=== PATIENT | female | born 1930 | race Caucasian/White ===

== ENCOUNTER 2018-08-01 15:43 | Inpatient (IN) | payer OTHER, MEDICARE ==
--- NOTE | 2018-08-01 16:01 | PDOC ---
History of Present Illness - General Stated Complaint: SHORTNESS OF BREATH Time Seen by Provider: 08/01/18 16:00 - History of Present Illness Initial Comments: 08/01/18 16:40 88 year old woman with a history of asthma, using home oxygen (does not know how many liters) as needed at home, typically in the mornings who prsents with shortness of breath anf nonproductive coughing for 1 day. She is followed by Dr. Ventura. She denies any chest pain, abdominal pain, fevers, recent illness, recent travel. Denies any other medical history aside from intermittent diarrhea but notes that she tends to go to [place] for shortness of breath, and last went last week. never been intubated before Past History - Past Medical History Allergies/Adverse Reactions: Allergies Allergy/AdvReac Type Severity Reaction Status Date / Time albuterol sulfate Allergy Unknown Verified 08/01/18 16:13 [From ProAir HFA] arformoterol tartrate Allergy Unknown Verified 08/01/18 16:13 [From Brovana] losartan Allergy Unknown Verified 08/01/18 16:13 Review of Systems - Review of Systems Able to Perform ROS?: Yes Is the patient limited Filipino proficient: No Constitutional: No: Chills, Diaphoresis, Fever HEENTM: No: Eye Pain, Tinnitus Respiratory: Yes: Cough, Shortness of Breath. No: Orthopnea Cardiac (ROS): No: Chest Pain, Lightheadedness, Palpitations, Syncope ABD/GI: No: Constipated, Diarrhea, Nausea, Vomiting : No: Burning, Dysuria Musculoskeletal: No: Back Pain, Muscle Pain Neurological: No: Headache, Numbness, Seizure, Tingling *Physical Exam - Physical Exam Comments: 08/01/18 16:48 GENERAL: Awake, alert, and fully oriented, 100% on 4L NC, dry cough HEAD: No signs of trauma, normocephalic, atraumatic EYES: EOMI, sclera anicteric, conjunctiva clear ENT: oropharynx clear without exudates. Moist mucosa NECK: Normal ROM, supple LUNGS: No distress, speaks full sentences, coarse breath sounds bilaterally HEART: Regular rate and rhythm, normal S1 and S2, no murmurs, rubs or gallops, peripheral pulses normal and equal bilaterally. ABDOMEN: Soft, nontender, normoactive bowel sounds. No guarding, no rebound. No masses. mild abdominal breathing EXTREMITIES : Normal inspection, Normal range of motion, no edema. No clubbing or cyanosis. NEUROLOGICAL: Cranial nerves II through XII grossly intact. Normal speech, no focal sensorimotor deficits SKIN: Warm, Dry, multiple bruises ED Treatment Course - LABORATORY CBC & Chemistry Diagram: 08/01/18 16:40 08/01/18 16:40 Medical Decision Making - Medical Decision Making 08/01/18 16:43 88 year old woman with a history of asthma, using home oxygen as needed at home , typically in the mornings who prsents with shortness of breath anf nonproductive coughing for 1 day. She is followed by Dr. Ventura. She denies any chest pain, abdominal pain, fevers, recent illness, recent travel. Denies any other medical history aside from intermittent diarrhea but notes that she tends to go to [place] for shortness of breath, and last went last week. ED Course: consider asthma exacerbation vs pna vs viral URI r/o ACS will dose solumedrol and ipratroprium neb as patient has allergy to albuterol cbc, cmp, vbg, bnp, ekg, trop, cxr 08/01/18 16:52 100% on 4L NC, dry cough 08/01/18 17:17 EKG: normal sinus rhythm HR 60, no interval abnormalities, narrow QRS, ST and T wave segments and morphology normal. 08/01/18 17:47 patient reassessed satting 97% on 4L NC increased to 5L will redose breathing treatment dose Mg CXR: unchanged from 2014, patchiness on L and R hilar border, patient rotated on image, deviated airway, appropriate vascular markings, no blunting of costophrenic angle, no cardiomegaly, as read by this television script writer and attending. 08/01/18 18:11 BNP elevated dose lasix 40 Plan to admit 08/01/18 18:13 *DC/Admit/Observation/Transfer Diagnosis at time of Disposition: CHF (congestive heart failure) - Discharge Dispostion Condition at time of disposition: Stable Decision to Admit order: Yes - Referrals - Patient Instructions - Post Discharge Activity
[2018-08-01] MEDS ORDERED: IPRATROPIUM BR 0.02% 0.5 MG/2.5 ML VIAL.NEB. NEB ONE ×5 (16:22→19:59)
[2018-08-01] MEDS ORDERED: methylPREDNISolone NA SUCC 125 MG/2 ML VIAL IVPUSH ONE (16:22)
[2018-08-01] MEDS ORDERED: methylPREDNISolone NA SUCC 125 MG/2 ML VIAL ONE (16:37)
[2018-08-01 16:54] LABS: BASO % 0.3 % (0-2.0); EOS % 0.1 % (0-4.5); HEMATOCRIT 32.3 % (32.4-45.2); HEMOGLOBIN 10.8 GM/dL (10.7-15.3); MCH 30.6 pg (25.7-33.7); MCHC 33.4 g/dl (32.0-36.0); MEAN CELL VOLUME 91.5 fl (80-96); MEAN PLT VOLUME 6.8 fl (7.5-11.1); MONO % 2.9 % (3.8-10.2); NEUT % 93.7 % (42.8-82.8); PLATELET COUNT 224 K/MM3 (134-434); RBC 3.53 M/mm3 (3.60-5.2); RDW 15.3 % (11.6-15.6); VENOUS PH 7.44 (7.31-7.41); VENOUS PO2 57.8 mmHg (30-40); WHITE BLOOD COUNT 12.1 K/mm3 (4.0-10.0)
[2018-08-01 17:18] LABS: INR 0.87 (0.83-1.09); PROTHROMBIN TIME (PATIENT) 10.2 SEC (9.7-13.0)
[2018-08-01 17:21] LABS: ACTIVATED PTT 20.5 SECONDS (25.2-36.5)
[2018-08-01 17:30] LABS: ALBUMIN 2.4 g/dl (3.4-5.0); ALK PHOS 74 U/L (45-117); ANION GAP 6 MMOL/L (8-16); BILIRUBIN,TOTAL 0.4 mg/dL (0.2-1); BLOOD UREA NITROGEN 28 mg/dL (7-18); CALCIUM 8.4 mg/dL (8.5-10.1); CHLORIDE 94 mmol/L (98-107); CO2 30 mmol/L (21-32); CREATININE 0.7 mg/dL (0.55-1.3); GLUCOSE,RANDOM 178 mg/dL (74-106); N-TERMINAL BNP 1783.9 pg/ml (5-450); POTASSIUM 5.2 mmol/L (3.5-5.1); SGOT/AST 28 U/L (15-37); SGPT/ALT 42 U/L (13-61); SODIUM 130 mmol/L (136-145)
[2018-08-01] MEDS ORDERED: MAGNESIUM SULF 50% (8.12 MEQ/2 ML-1 GM VIAL) IVPB ONE (17:47)
[2018-08-01] MEDS ORDERED: FUROSEMIDE 40 MG/4 ML INJECTABLE VIAL IVPUSH ONE (18:11)
[2018-08-01] MEDS ORDERED: MAGNESIUM 1GM/D5W - 2 GM/200 ML IVPB IVPB ONE (18:13)
[2018-08-01] MEDS ORDERED: FUROSEMIDE 40 MG/4 ML INJECTABLE VIAL ONE (18:45)
--- NOTE | 2018-08-01 18:47 | PDOC ---
Attending Attestation - HPI HPI: 08/01/18 19:33 The patient is a 88 year old female, with a significant past medical history of asthma (on @home O2), who presents to the emergency department with, shortness of breath and blt LE pitting edema. She denies recent fevers, chills, headache or dizziness. She denies recent nausea, vomit, diarrhea or constipation. She denies recent dysuria, frequency, urgency or hematuria. She denies recent chest pain. - Physicial Exam PE: 08/01/18 19:33 GENERAL: Well-appearing, well-nourished. No apparent distress. HEENT: Normocephalic, atraumatic. PERRL, EOM intact. CARDIOVASCULAR: Normal S1, S2. Regular rate and rhythm. PULMONARY: On 4L O2. Scattered rhonchi and wheezes. Tachypneic. Increased work of breathing. ABDOMEN: Soft, non-distended, non-tender. EXTREMITIES: 3+ blt pitting edema. Normal ROM in all four extremities. SKIN: Warm, dry. No rash NEUROLOGICAL: No focal neurological deficits. <Maverick Dale - Last Filed: 08/01/18 19:49> - Resident Resident Name: Tiffanie Moser - ED Attending Attestation I have performed the following: I have examined & evaluated the patient, The case was reviewed & discussed with the resident, I agree w/resident's findings & plan, Exceptions are as noted - Medical Decision Making 08/01/18 20:11 Diff includes copd exacerbation,chf,ACS and pt will receive resp treatmetns, Lasix,trop and admission <Kesha Woody - Last Filed: 08/01/18 20:12> Attestations - Attestations 08/01/18 19:34 Documentation prepared by Maverick Dale, acting as electromedical equipment technician for Kesha Woody MD. <Maverick Dale - Last Filed: 08/01/18 19:49>
[2018-08-01 19:25] LABS: ANISOCYTOSIS 0; MACROCYTOSIS 0; PLATELET ESTIMATE NORMAL
--- NOTE | 2018-08-01 19:54 | HP ---
CHIEF COMPLAINT:shortness of breath PCP: dr Ventura HISTORY OF PRESENT ILLNESS: 88 year old woman with a history of asthma, using home oxygen (does not know how many liters) as needed at home, typically in the mornings who prsents with shortness of breath anf nonproductive coughing for 1 day. She is followed by Dr. Ventura.She has multiple admission at [facility] for acute astham and she came here first time for admission. She denies any chest pain, abdominal pain, fevers , recent illness, recent travel. Denies any other medical history aside from intermittent diarrhea NO h/o intubation before she cant recall her home meds and she goes to [facility] ER course was notable for: (1)sob (2)h/o asthma (3)multiple admissions to hospital Recent Travel:non PAST MEDICAL HISTORY:asthma and arthritis PAST SURGICAL HISTORY:she doesn't remember Social History: Smoking:none Alcohol:none Drugs: none Family History:not significant and she lives with her brother and son Allergies albuterol sulfate [From ProAir HFA] Allergy (Unknown, Verified 08/01/18 16:13) arformoterol tartrate [From Brovana] Allergy (Unknown, Verified 08/01/18 16:13) losartan Allergy (Unknown, Verified 08/01/18 16:13) HOME MEDICATIONS: REVIEW OF SYSTEMS CONSTITUTIONAL: Absent: chills, diaphoresis, generalized weakness, malaise, loss of appetite, weight change HEENT: Absent: rhinorrhea, nasal congestion, throat pain, throat swelling, difficulty swallowing, mouth swelling, ear pain, eye pain, visual changes CARDIOVASCULAR: Absent: chest pain, syncope, palpitations, irregular heart rate, lightheadedness , peripheral edema RESPIRATORY: Absent: dyspnea with exertion, orthopnea, wheezing, stridor, hemoptysis but positive for cough, shortness of breath, GASTROINTESTINAL: Absent: abdominal pain, abdominal distension, nausea, vomiting, diarrhea, constipation, melena, hematochezia GENITOURINARY: Absent: dysuria, frequency, urgency, hesitancy, hematuria, flank pain, genital pain MUSCULOSKELETAL: Absent: myalgia, arthralgia, joint swelling, back pain, neck pain SKIN: Absent: rash, itching, pallor HEMATOLOGIC/IMMUNOLOGIC: Absent: easy bleeding, easy bruising, lymphadenopathy, frequent infections ENDOCRINE: Absent: unexplained weight gain, unexplained weight loss, heat intolerance, cold intolerance NEUROLOGIC: Absent: headache, focal weakness or paresthesias, dizziness, unsteady gait, seizure, mental status changes, bladder or bowel incontinence PHYSICAL EXAMINATION Vital Signs - 24 hr 08/01/18 16:08 Temperature 99.5 F Pulse Rate 63 Respiratory 20 Rate Blood Pressure 110/60 O2 Sat by Pulse 100 Oximetry (%) GENERAL: Awake, alert, and in mild wheezing HEAD: Normal with no signs of trauma. EYES: Pupils equal, round and reactive to light, extraocular movements intact, sclera anicteric, conjunctiva clear. No lid lag. EARS, NOSE, THROAT: Ears normal, nares patent, oropharynx clear without exudates. Moist mucous membranes. NECK: Normal range of motion, supple without lymphadenopathy, JVD, or masses. LUNGS: Bilateral wheezing and moderate air entry HEART: Regular rate and rhythm, normal S1 and S2 without murmur, rub or gallop. ABDOMEN: Soft, nontender, not distended, normoactive bowel sounds, no guarding, no rebound, no masses. No hepatomegaly or splenomegaly. MUSCULOSKELETAL: defuse oa UPPER EXTREMITIES: 2+ pulses, warm, well-perfused. No cyanosis. No clubbing. No peripheral edema. LOWER EXTREMITIES: 2+ pulses, warm, well-perfused. No calf tenderness. No peripheral edema. NEUROLOGICAL: Cranial nerves II-XII intact. Normal speech. Normal gait. SKIN: Warm, dry, normal turgor, no rashes or lesions noted, normal capillary refill. Laboratory Results - last 24 hr 08/01/18 08/01/18 08/01/18 16:40 16:40 16:40 WBC 12.1 H RBC 3.53 L Hgb 10.8 Hct 32.3 L MCV 91.5 MCH 30.6 MCHC 33.4 RDW 15.3 Plt Count 224 MPV 6.8 L Absolute Neuts (auto) 11.4 H Neutrophils % 93.7 H Neutrophils % (Manual) 86.2 H Band Neutrophils % 2.1 Lymphocytes % 3.0 L Lymphocytes % (Manual) 2.1 L Monocytes % 2.9 L Monocytes % (Manual) 2 L Eosinophils % 0.1 Eosinophils % (Manual) 0.0 Basophils % 0.3 Basophils % (Manual) 0.0 Myelocytes % (Man) 1 Promyelocytes % (Man) 1 Blast Cells % (Manual) 0 Nucleated RBC % 0 Metamyelocytes 3 H Hypochromia 0 Platelet Estimate Normal Polychromasia 0 Poikilocytosis 0 Anisocytosis 0 Microcytosis 0 Macrocytosis 0 [place] Cells 1+ Fragmented RBCs 1+ PT with INR 10.20 INR 0.87 PTT (Actin FS) 20.5 L VBG pH POC VBG pCO2 POC VBG pO2 VBG HCO3 VBG O2 Sat (Hetal) VBG Base Excess Sodium 130 L Potassium 5.2 H Chloride 94 L Carbon Dioxide 30 Anion Gap 6 L BUN 28 H Creatinine 0.7 Creat Clearance w eGFR 79.15 Random Glucose 178 H Calcium 8.4 L Total Bilirubin 0.4 AST 28 ALT 42 Alkaline Phosphatase 74 Troponin I < 0.02 B-Natriuretic Peptide 1783.9 H Total Protein 5.0 L Albumin 2.4 L Stool Occult Blood 08/01/18 08/01/18 16:40 17:31 WBC RBC Hgb Hct MCV MCH MCHC RDW Plt Count MPV Absolute Neuts (auto) Neutrophils % Neutrophils % (Manual) Band Neutrophils % Lymphocytes % Lymphocytes % (Manual) Monocytes % Monocytes % (Manual) Eosinophils % Eosinophils % (Manual) Basophils % Basophils % (Manual) Myelocytes % (Man) Promyelocytes % (Man) Blast Cells % (Manual) Nucleated RBC % Metamyelocytes Hypochromia Platelet Estimate Polychromasia Poikilocytosis Anisocytosis Microcytosis Macrocytosis Michael Cells Fragmented RBCs PT with INR INR PTT (Actin FS) VBG pH 7.44 H POC VBG pCO2 44.0 POC VBG pO2 57.8 H VBG HCO3 29.1 H VBG O2 Sat (Hetal) 89.6 H VBG Base Excess 4.8 H Sodium Potassium Chloride Carbon Dioxide Anion Gap BUN Creatinine Creat Clearance w eGFR Random Glucose Calcium Total Bilirubin AST ALT Alkaline Phosphatase Troponin I B-Natriuretic Peptide Total Protein Albumin Stool Occult Blood Negative ASSESSMENT/PLAN: 88 year old woman with a history of asthma, using home oxygen as needed at home , typically in the mornings who presents with shortness of breath anf nonproductive coughing for 1 day. Will start her on atrovent nebulizer ,oxygen therapy,solumedrol and iv levaquin activity as tolerated dvt prophylaxis with lovenox will get her list of her medications from her pharmacy tomorrow by construction person hospitalist. pulmonary consult and dr Ventura is aware. repeat labs am Visit type - Emergency Visit Emergency Visit: Yes ED Registration Date: 08/01/18 Care time: The patient presented to the Emergency Department on the above date and was hospitalized for further evaluation of their emergent condition. - New Patient This patient is new to me today: Yes Date on this admission: 08/01/18 - Critical Care Critical Care patient: No
[2018-08-01] MEDS ORDERED: methylPREDNISolone NA SUCC 40 MG/1 ML VIAL ONE (19:59)
[2018-08-01] MEDS: IPRATROPIUM BR 0.02% 0.5 MG/2.5 ML VIAL.NEB. NEB SCH (20:42)
[2018-08-01] MEDS: methylPREDNISolone NA SUCC 40 MG/1 ML VIAL IVPUSH SCH (20:42)
[2018-08-01 23:22] LABS: EPI CELLS 1.7 /HPF (0-5); PH,URINE 6.5 (5.0-8.0); URINE APPEARANCE CLOUDY; URINE BACTERIA 5372.5 /hpf (NEGATIVE); URINE BILIRUBIN NEGATIVE (NEGATIVE); URINE CASTS 1 /hpf (0-8); URINE COLOR YELLOW; URINE GLUCOSE (UA) NEGATIVE (NEGATIVE); URINE KETONE NEGATIVE (NEGATIVE); URINE LEUK ESTERASE 1+ (NEGATIVE); URINE NITRITE NEGATIVE (NEGATIVE); URINE PROTEIN NEGATIVE (NEGATIVE); URINE RBC 3 /hpf (0-4); URINE UROBILINOGEN 0.2 mg/dL (0.2-1.0); URINE WBC 2 /hpf (0-5)
[2018-08-02] MEDS ORDERED: methylPREDNISolone NA SUCC 40 MG/1 ML VIAL ONE (03:59)
[2018-08-02] MEDS: methylPREDNISolone NA SUCC 40 MG/1 ML VIAL IVPUSH SCH ×4 (04:06→20:09)
[2018-08-02 04:49] VITALS: BMI 22.1
[2018-08-02] MEDS: IPRATROPIUM BR 0.02% 0.5 MG/2.5 ML VIAL.NEB. NEB SCH ×4 (07:35→22:04)
[2018-08-02 08:05] LABS: ANION GAP 4 MMOL/L (8-16); BLOOD UREA NITROGEN 30 mg/dL (7-18); CALCIUM 8.5 mg/dL (8.5-10.1); CHLORIDE 91 mmol/L (98-107); CO2 35 mmol/L (21-32); CREATININE 0.8 mg/dL (0.55-1.3); GLUCOSE,RANDOM 181 mg/dL (74-106); POTASSIUM 4.8 mmol/L (3.5-5.1); SODIUM 130 mmol/L (136-145)
[2018-08-02] MEDS ORDERED: PT OWN MED DRAWER 7, Y5N ONE (09:04)
[2018-08-02] MEDS: ENOXAPARIN NA (PORCINE) 30 MG/0.3 ML DISP.SYRIN SQ SCH (09:16)
[2018-08-02 09:21] LABS: BASO % 0.1 % (0-2.0); HEMATOCRIT 31.5 % (32.4-45.2); HEMOGLOBIN 10.8 GM/dL (10.7-15.3); MCH 31.3 pg (25.7-33.7); MCHC 34.3 g/dl (32.0-36.0); MEAN CELL VOLUME 91.3 fl (80-96); MEAN PLT VOLUME 7.3 fl (7.5-11.1); MONO % 2.2 % (3.8-10.2); NEUT % 93.7 % (42.8-82.8); PLATELET COUNT 219 K/MM3 (134-434); RBC 3.46 M/mm3 (3.60-5.2); RDW 14.8 % (11.6-15.6); WHITE BLOOD COUNT 11.2 K/mm3 (4.0-10.0)
[2018-08-02] MEDS ORDERED: FUROSEMIDE 40 MG/4 ML INJECTABLE VIAL IVPUSH ONE (10:00)
[2018-08-02] MEDS ORDERED: FLU VACCINE QUAD 60 MCG/0.5 ML (MDV 18-19) IM ONE (10:00)
--- NOTE | 2018-08-02 10:46 | CON.PULM ---
Consult Consult Specialty:: PULMONARY Referred by:: Dr Mercedes Reason for Consultation:: shortness of breath - History of Present Illness Chief Complaint: shortness of breath History of Present Illness: 88yo female with h/o asthma/COPD, chronic hypoxic respiratory failure on home O2 who was admitted with worsening shortness of breath. No chest pain or palpitations. No fevers, chills or sweats. Denies cough but with chest tightness and wheezing. Does not know her home meds, known from prior admissions with questionable compliance with her inhalers. No sick contacts or recent travel. She is a nonsmoker. - History Source History Provided By: Patient, Medical Record Limitations to Obtaining History: No Limitations - Past Medical History Pulmonary: Yes: Asthma, COPD, O2 Dependent ...: No - Alcohol/Substance Use Hx Alcohol Use: No - Smoking History Smoking history: Never smoked Have you smoked in the past 12 months: No Home Medications - Allergies Allergies/Adverse Reactions: Allergies Allergy/AdvReac Type Severity Reaction Status Date / Time albuterol sulfate Allergy Unknown Verified 08/01/18 16:13 [From ProAir HFA] arformoterol tartrate Allergy Unknown Verified 08/01/18 16:13 [From Brovana] losartan Allergy Unknown Verified 08/01/18 16:13 - Home Medications Home Medications: Ambulatory Orders Unobtainable 08/01/18 Review of Systems - Review of Systems Constitutional: denies: Chills, Fever Eyes: denies: Recent Change in Vision HENT: denies: Throat Pain Cardiovascular: reports: Shortness of Breath. denies: Chest Pain, Edema Respiratory: reports: Wheezing. denies: Cough, Hemoptysis Gastrointestinal: denies: Abdominal Pain, Nausea, Vomiting Genitourinary: denies: Dysuria, Hematuria Neurological: denies: Dizziness, Headache Endocrine: denies: Unexplained Weight Loss Physical Exam Vital Sings: Vital Signs Temperature 98.5 F 08/02/18 03:49 Pulse Rate 64 08/02/18 03:49 Respiratory Rate 19 08/02/18 03:49 Blood Pressure 121/78 08/02/18 03:49 O2 Sat by Pulse Oximetry (%) 98 08/02/18 03:49 Constitutional: Yes: Anxious, Mild Distress Eyes: Yes: Conjunctiva Clear, EOM Intact HENT: Yes: Atraumatic, Normocephalic Neck: Yes: Supple, Trachea Midline Cardiovascular: Yes: Regular Rate and Rhythm Respiratory: Yes: Rhonchi, Wheezes ...Clubbing: No Gastrointestinal: Yes: Normal Bowel Sounds, Soft. No: Tenderness Edema: No Neurological: Yes: Alert, Oriented Labs: CBC, BMP 08/02/18 06:45 08/02/18 06:45 Imaging - Results Chest X-ray: Report Reviewed, Image Reviewed (no infiltrates) Assessment/Plan Acute COPD Exacerbation Chronic Hypoxic Respiratory Failure Hyponatremia r/o CHF - agree with IV medrol - inhaled bronchodilators standing and PRN - O2 to keep SpO2 >90% - empiric antibiotics - echocardiogram - DVT prophylaxis Thank you for this consult Dexter Guzman MD
[2018-08-02 11:06] LABS: ANISOCYTOSIS 0; MACROCYTOSIS 1+; PLATELET ESTIMATE NORMAL
--- NOTE | 2018-08-02 11:35 | PN ---
Physical Exam: SUBJECTIVE: Patient seen and examined at bedside this morning. She currently admits difficulty breathing that has been longstanding. She is uncertain regarding her home medications and admits she is not compliant with all of her prescribed medications. She denies subjective fevers, chills, chest pain, palpitations, abdominal pain, nausea, vomiting. OBJECTIVE: Vital Signs Period Temp Pulse Resp BP Sys/Puga Pulse Ox Last 24 Hr 98.2 F-99.5 F 63-76 19-22 110-128/60-78 96-100 GENERAL: The patient is awake, alert, and oriented, in no acute distress. HEAD: Normocephalic, atraumatic. EYES: PERRL, extraocular movements intact, sclera anicteric, conjunctiva clear. ENT: Oropharynx clear without exudates, dry mucous membranes. NECK: Trachea midline, supple without lymphadenopathy. LUNGS: Poor air entry bilaterally. Wheezing, coarse rhonchi auscultated bilaterally. HEART: Regular rate and rhythm, S1, S2 auscultated without murmur, rubs, gallops. ABDOMEN: Soft, nondistended, nontender to light and deep palpation X4 quadrants. No guarding, no rebound tenderness. Normoactive bowel sounds x4 quadrants. EXTREMITIES: 2+ radial, dorsalis pedis pulses bilaterally. Warm, well-perfused. 1+ bilateral lower extremity edema. NEUROLOGICAL: Cranial nerves II through XII grossly intact. PSYCH: Normal mood, normal affect upon my encounter. SKIN: Warm, dry. Laboratory Results - last 24 hr 08/01/18 08/01/18 08/01/18 16:40 16:40 16:40 WBC 12.1 H RBC 3.53 L Hgb 10.8 Hct 32.3 L MCV 91.5 MCH 30.6 MCHC 33.4 RDW 15.3 Plt Count 224 MPV 6.8 L Absolute Neuts (auto) 11.4 H Neutrophils % 93.7 H Neutrophils % (Manual) 86.2 H Band Neutrophils % 2.1 Lymphocytes % 3.0 L Lymphocytes % (Manual) 2.1 L Monocytes % 2.9 L Monocytes % (Manual) 2 L Eosinophils % 0.1 Eosinophils % (Manual) 0.0 Basophils % 0.3 Basophils % (Manual) 0.0 Myelocytes % (Man) 1 Promyelocytes % (Man) 1 Blast Cells % (Manual) 0 Nucleated RBC % 0 Metamyelocytes 3 H Hypochromia 0 Platelet Estimate Normal Polychromasia 0 Poikilocytosis 0 Anisocytosis 0 Microcytosis 0 Macrocytosis 0 Michael Cells 1+ Fragmented RBCs 1+ Schistocytes PT with INR 10.20 INR 0.87 PTT (Actin FS) 20.5 L VBG pH POC VBG pCO2 POC VBG pO2 VBG HCO3 VBG O2 Sat (Hetal) VBG Base Excess Sodium 130 L Potassium 5.2 H Chloride 94 L Carbon Dioxide 30 Anion Gap 6 L BUN 28 H Creatinine 0.7 Creat Clearance w eGFR 79.15 Random Glucose 178 H Calcium 8.4 L Total Bilirubin 0.4 AST 28 ALT 42 Alkaline Phosphatase 74 Troponin I < 0.02 B-Natriuretic Peptide 1783.9 H Total Protein 5.0 L Albumin 2.4 L Urine Color Urine Appearance Urine pH Ur Specific [place] Urine Protein Urine Glucose (UA) Urine Ketones Urine Blood Urine Nitrite Urine Bilirubin Urine Urobilinogen Ur Leukocyte Esterase Urine WBC (Auto) Urine RBC (Auto) Urine Casts (Auto) U Epithel Cells (Auto) Urine Bacteria (Auto) Stool Occult Blood 08/01/18 08/01/18 08/01/18 16:40 17:31 23:14 WBC RBC Hgb Hct MCV MCH MCHC RDW Plt Count MPV Absolute Neuts (auto) Neutrophils % Neutrophils % (Manual) Band Neutrophils % Lymphocytes % Lymphocytes % (Manual) Monocytes % Monocytes % (Manual) Eosinophils % Eosinophils % (Manual) Basophils % Basophils % (Manual) Myelocytes % (Man) Promyelocytes % (Man) Blast Cells % (Manual) Nucleated RBC % Metamyelocytes Hypochromia Platelet Estimate Polychromasia Poikilocytosis Anisocytosis Microcytosis Macrocytosis Michael Cells Fragmented RBCs Schistocytes PT with INR INR PTT (Actin FS) VBG pH 7.44 H POC VBG pCO2 44.0 POC VBG pO2 57.8 H VBG HCO3 29.1 H VBG O2 Sat (Hetal) 89.6 H VBG Base Excess 4.8 H Sodium Potassium Chloride Carbon Dioxide Anion Gap BUN Creatinine Creat Clearance w eGFR Random Glucose Calcium Total Bilirubin AST ALT Alkaline Phosphatase Troponin I B-Natriuretic Peptide Total Protein Albumin Urine Color Yellow Urine Appearance Cloudy Urine pH 6.5 Ur Specific [place] 1.006 L Urine Protein Negative Urine Glucose (UA) Negative Urine Ketones Negative Urine Blood 1+ H Urine Nitrite Negative Urine Bilirubin Negative Urine Urobilinogen 0.2 Ur Leukocyte Esterase 1+ H Urine WBC (Auto) 2 Urine RBC (Auto) 3 Urine Casts (Auto) 1 U Epithel Cells (Auto) 1.7 Urine Bacteria (Auto) 5372.5 Stool Occult Blood Negative 08/02/18 08/02/18 06:45 06:45 WBC 11.2 H RBC 3.46 L Hgb 10.8 Hct 31.5 L MCV 91.3 MCH 31.3 MCHC 34.3 RDW 14.8 Plt Count 219 MPV 7.3 L Absolute Neuts (auto) 10.5 H Neutrophils % 93.7 H Neutrophils % (Manual) 83.8 H Band Neutrophils % 4.0 Lymphocytes % 4.0 L D Lymphocytes % (Manual) 4.1 L D Monocytes % 2.2 L Monocytes % (Manual) 0 L D Eosinophils % 0.0 D Eosinophils % (Manual) 0.0 Basophils % 0.1 Basophils % (Manual) 0.0 Myelocytes % (Man) 5 H D Promyelocytes % (Man) 0 D Blast Cells % (Manual) 0 Nucleated RBC % 0 Metamyelocytes 2 D Hypochromia 0 Platelet Estimate Normal Polychromasia 0 Poikilocytosis 1+ Anisocytosis 0 Microcytosis 0 Macrocytosis 1+ Michael Cells Fragmented RBCs Schistocytes 1+ PT with INR INR PTT (Actin FS) VBG pH POC VBG pCO2 POC VBG pO2 VBG HCO3 VBG O2 Sat (Hetal) VBG Base Excess Sodium 130 L Potassium 4.8 Chloride 91 L Carbon Dioxide 35 H Anion Gap 4 L BUN 30 H Creatinine 0.8 Creat Clearance w eGFR 67.85 Random Glucose 181 H Calcium 8.5 Total Bilirubin AST ALT Alkaline Phosphatase Troponin I B-Natriuretic Peptide Total Protein Albumin Urine Color Urine Appearance Urine pH Ur Specific [place] Urine Protein Urine Glucose (UA) Urine Ketones Urine Blood Urine Nitrite Urine Bilirubin Urine Urobilinogen Ur Leukocyte Esterase Urine WBC (Auto) Urine RBC (Auto) Urine Casts (Auto) U Epithel Cells (Auto) Urine Bacteria (Auto) Stool Occult Blood Active Medications Generic Name Dose Route Start Last Admin Trade Name Freq PRN Reason Stop Dose Admin Enoxaparin Sodium 30 mg 08/02/18 10:00 08/02/18 09:16 Lovenox - SQ 30 mg DAILY AMAURI Administration Levofloxacin 250 mg in 50 mls @ 50 mls/hr 08/01/18 20:00 08/02/18 09:15 Levaquin 250 Mg Premixed Ivpb - IVPB 50 mls/hr DAILY AMAURI Administration Protocol Ipratropium Sontag 1 amp 08/01/18 20:00 08/02/18 07:35 Atrovent 0.02% Nebulizer - NEB 1 amp RQID AMAURI Administration Levalbuterol HCl 0.63 mg 08/02/18 14:00 Xopenex IH RTID AMAURI Methylprednisolone Sodium Succinate 40 mg 08/01/18 21:00 08/02/18 09:14 Solu-Medrol - IVPUSH 40 mg Q6H-IV AMAURI Administration ASSESSMENT/PLAN: Patient is an 88 year old female with history of asthma, with numerous admissions to [facility] for asthma exacerbation, on home oxygen, no prior history of intubations, presents with complaint of shortness of breath. Acute hypoxic respiratory failure -Likely secondary to asthma exacerbation, secondary to poor medication compliance -Methylprednisone 40mg IV Q6H -Levalbuterol 0.63mg IH TID -Ipratropium 1amp QID -Pulmonology consult (Dr. Guzman) appreciated. -Follow blood cultures Urinary tract infection -Levofloxacin 250mg IV daily (day #2) -Follow urine cultures Hypertension -Cardizem 120mg PO daily -Atenolol 25mg PO HS Hyperlipidemia -Atorvastatin 10mg PO HS Hyponatremia -Likely secondary to fluid overload -Lasix 40mg IV one time dose -Follow CMP FEN -No IV fluids -Hyponatremia. Follow CMP -regular diet Prophylaxis Lovenox 30mg subq daily Disposition -Continue care in medical-surgical floor Visit type - Emergency Visit Emergency Visit: Yes ED Registration Date: 08/01/18 Care time: The patient presented to the Emergency Department on the above date and was hospitalized for further evaluation of their emergent condition. - New Patient This patient is new to me today: Yes Date on this admission: 08/02/18 - Critical Care Critical Care patient: No - Discharge Referral Referred to [facility] No
--- NOTE | 2018-08-02 12:27 | PN ---
Teaching Attending Note Name of Resident: Gopal Phillips ATTENDING PHYSICIAN STATEMENT I saw and evaluated the patient. I reviewed the resident's note and discussed the case with the resident. I agree with the resident's findings and plan as documented. poor historian SUBJECTIVE:c/o difficulty breathing. states she cant lay down due to the breathing. unclear what her medications are, states there are some she is supposed to be taking but didnt get them from the pharmacy because she thought they were duplicates. was at [facility] recently and was d/c from ER. came here because they "dont do anything". denies CP, fever, chills, cough, N/V/C/D OBJECTIVE: Last Vital Signs Temp Pulse Resp BP Pulse Ox 98.5 F 64 19 121/78 98 08/02/18 03:49 08/02/18 03:49 08/02/18 03:49 08/02/18 03:49 08/02/18 03:49 General mild distress with tachypnea CV S1 S2 RRR no murmur/rub/gallop Lungs L base crackles. poor inspiratory effort Abdomen soft NT/ND Extremities 1+ pitting edema B/L ASSESSMENT AND PLAN: 88yo F wtih PMH athma on home O2 presnted to the ER with dyspnea and non productive cough for 1 day 1. ACute on CHronic hypoxic respiratory failure-due to asthma exacerbation and possible congestive heart failure. tachypnic, saturating 95% on 2L NC. is able to speak in clear sentences. is given stat dose of medrol and breathing treatment is called for with improvement in symptoms. on medrol 40mg Q6H, levaquin day 2. will give dose of lasix 40mg IVP and check echo. will need to obtain medication list and determine what other medical problems pt has as it seems she is on a long list of medications but nothing noted here. will also reach out to son to get more medical information and confirm med list at home. 2. UTI- on levaquin. f/u Cx 3. Hyponatremia- appears volume overloaded. concern has CHF. will give Lasix 40mg IVP x1 and check echo. monitor weights 4. Hyperkalemia- resolved 5. DVT ppx- lovenox 6. will need to verify home med list and reach out to family for information
--- NOTE | 2018-08-02 12:56 | ECHO ---
Name: SUSANA MCKEON Exam:Adult Echocardiogram Study Date: 08/02/2018 11:48 AM Age: 88 yrs Reason For Study: CHF Height: 63 in Weight: 125 lb BSA: 1.6 m2 MMode/2D Measurements & Calculations IVSd: 0.98 cm Ao root diam: 3.1 cm LVIDd: 4.1 cm LA dimension: 1.6 cm LVIDs: 2.9 cm LVPWd: 1.1 cm EDV(Teich): 75.9 ml LVOT diam: 2.0 cm ESV(Teich): 31.0 ml Doppler Measurements & Calculations MV E max ruperto: 55.3 cm/sec Ao V2 max: 145.2 cm/sec MV A max ruperto: 68.4 cm/sec Ao max P.4 mmHg MV E/A: 0.81 AI P1/2t: 441.7 msec MV dec time: 0.12 sec ADWOA(V,D): 2.5 cm2 AI max ruperto: 319.0 cm/sec LV V1 max P.3 mmHg AI max P.7 mmHg LV V1 max: 115.0 cm/sec AI dec slope: 211.5 cm/sec2 MR max ruperto: 529.6 cm/sec TR max ruperto: 228.0 cm/sec MR max P.2 mmHg TR max P.9 mmHg PA V2 max: 96.4 cm/sec Med Peak E' Ruperto: 6.2 cm/sec PA max P.7 mmHg Med E/e': 8.9 Lat Peak E' Ruperto: 4.9 cm/sec Lat E/e': 11.3 PI Vmax: 116.7 cm/sec Procedure A complete two-dimensional transthoracic echocardiogram was performed (2D, M-mode, Doppler and color flow Doppler). Left Ventricle The left ventricle is normal in size. Left ventricular systolic function is normal. Ejection Fraction = 60- 65%. Grade I diastolic dysfunction, (abnormal relaxation pattern). Ratio E/E'= 9. No regional wall mo tion abnormalities noted. Right Ventricle The right ventricle is normal size. The right ventricular systolic function is normal. Atria The left atrial size is normal. Right atrial size is normal. Mitral Valve There is mild mitral annular calcification. There is mild to moderate mitral regurgitation. Tricuspid Valve The tricuspid valve is normal in structure and function. There is mild tricuspid regurgitation. Pulmo nary artery systolic pressure is at least 27 mmHg assuming RA pressure of 3 mmHg. Aortic Valve The aortic valve is trileaflet. The aortic valve opens well. Moderate aortic regurgitation. Pulmonic Valve The pulmonic valve is not well visualized. Mild pulmonic valvular regurgitation. Great Vessels The aortic root is normal size. Pericardium/Pleura There is no pericardial effusion. Interpretation Summary The left ventricle is normal in size. Left ventricular systolic function is normal. No regional wall motion abnormalities noted. Ejection Fraction = 60-65%. Grade I diastolic dysfunction, (abnormal relaxation pattern). Ratio E/E'= 9 The right ventricular systolic function is normal. The left atrial size is normal. Right atrial size is normal. There is mild mitral annular calcification. There is mild to moderate mitral regurgitation. There is mild tricuspid regurgitation. Pulmonary artery systolic pressure is at least 27 mmHg assuming RA pressure of 3 mmHg Moderate aortic regurgitation. Mild pulmonic valvular regurgitation. There is no pericardial effusion. Previous study is not available for comparison Devan Andrews MD 08/02/2018 12:55 PM
--- NOTE | 2018-08-02 15:34 | EKG ---
Test Reason : Blood Pressure : / mmHG Vent. Rate : 060 BPM Atrial Rate : 060 BPM P-R Int : 130 ms QRS Dur : 066 ms QT Int : 392 ms P-R-T Axes : 059 004 070 degrees QTc Int : 392 ms NORMAL SINUS RHYTHM NORMAL ECG WHEN COMPARED WITH ECG OF 17-AUG-2003 11:24, NO SIGNIFICANT CHANGE WAS FOUND Confirmed by DARRIN WATSON MD ([id number]) on 08/02/2018 3:33:40 PM Referred By: Confirmed By:DARRIN WATSON MD
[2018-08-02] MEDS: LEVALBUTEROL HCL 0.63 MG/3 ML VIAL.NEB. IH SCH ×2 (17:29→22:04)
[2018-08-02] MEDS: ATORVASTATIN CA 10 MG TABLET (FP) PO SCH (22:28)
[2018-08-03] MEDS: methylPREDNISolone NA SUCC 40 MG/1 ML VIAL IVPUSH SCH ×4 (02:17→21:12)
[2018-08-03 06:15] LABS: HEMATOCRIT 32.3 % (32.4-45.2); HEMOGLOBIN 11.3 GM/dL (10.7-15.3); MCH 31.3 pg (25.7-33.7); MCHC 34.8 g/dl (32.0-36.0); MEAN CELL VOLUME 89.8 fl (80-96); MEAN PLT VOLUME 7.1 fl (7.5-11.1); PLATELET COUNT 238 K/MM3 (134-434); RDW 14.8 % (11.6-15.6); WHITE BLOOD COUNT 13.5 K/mm3 (4.0-10.0)
[2018-08-03 06:43] LABS: ALBUMIN 2.5 g/dl (3.4-5.0); ALK PHOS 67 U/L (45-117); ANION GAP 5 MMOL/L (8-16); BILIRUBIN,TOTAL 0.5 mg/dL (0.2-1); BLOOD UREA NITROGEN 30 mg/dL (7-18); CALCIUM 8.3 mg/dL (8.5-10.1); CHLORIDE 88 mmol/L (98-107); CO2 37 mmol/L (21-32); CREATININE 0.7 mg/dL (0.55-1.3); GLUCOSE,RANDOM 178 mg/dL (74-106); MAGNESIUM 2.4 mg/dL (1.8-2.4); PHOSPHOROUS 3.8 mg/dL (2.5-4.9); POTASSIUM 3.7 mmol/L (3.5-5.1); SGOT/AST 15 U/L (15-37); SGPT/ALT 38 U/L (13-61); SODIUM 130 mmol/L (136-145); TOT PROT 5.1 g/dl (6.4-8.2)
[2018-08-03] MEDS: LEVALBUTEROL HCL 0.63 MG/3 ML VIAL.NEB. IH SCH ×3 (07:35→20:50)
[2018-08-03] MEDS: IPRATROPIUM BR 0.02% 0.5 MG/2.5 ML VIAL.NEB. NEB SCH ×4 (07:35→20:25)
--- NOTE | 2018-08-03 07:43 | PN ---
Physical Exam: SUBJECTIVE: Patient seen and examined at bedside. Admits improvement of her breathing, and diminished shortness of breath. She denies subjective fevers, chills, chest pain, palpitations, abdominal pain, nausea, vomiting. OBJECTIVE: Vital Signs Period Temp Pulse Resp BP Sys/Puga Pulse Ox Last 24 Hr 97.5 F-98.7 F 78-91 20-25 116-143/57-74 94-94 GENERAL: The patient is awake, alert, and oriented, in no acute distress. On 2L nasal canula. HEAD: Normocephalic, atraumatic. EYES: PERRL, extraocular movements intact, sclera anicteric, conjunctiva clear. ENT: Oropharynx clear without exudates, dry mucous membranes. NECK: Trachea midline, supple without lymphadenopathy. LUNGS: Improving air entry bilaterally. Wheezing, coarse rhonchi auscultated bilaterally. HEART: Regular rate and rhythm, S1, S2 auscultated without murmur, rubs, gallops. ABDOMEN: Soft, nondistended, nontender to light and deep palpation X4 quadrants. No guarding, no rebound tenderness. Normoactive bowel sounds x4 quadrants. EXTREMITIES: 2+ radial, dorsalis pedis pulses bilaterally. Warm, well-perfused. 1+ bilateral lower extremity edema. NEUROLOGICAL: Cranial nerves II through XII grossly intact. PSYCH: Normal mood, normal affect upon my encounter. SKIN: Warm, dry. Laboratory Results - last 24 hr 08/02/18 08/02/18 08/03/18 06:45 06:45 05:10 WBC 11.2 H 13.5 H RBC 3.46 L 3.60 Hgb 10.8 11.3 Hct 31.5 L 32.3 L MCV 91.3 89.8 MCH 31.3 31.3 MCHC 34.3 34.8 RDW 14.8 14.8 Plt Count 219 238 MPV 7.3 L 7.1 L Absolute Neuts (auto) 10.5 H Neutrophils % 93.7 H Neutrophils % (Manual) 83.8 H Band Neutrophils % 4.0 Lymphocytes % 4.0 L D Lymphocytes % (Manual) 4.1 L D Monocytes % 2.2 L Monocytes % (Manual) 0 L D Eosinophils % 0.0 D Eosinophils % (Manual) 0.0 Basophils % 0.1 Basophils % (Manual) 0.0 Myelocytes % (Man) 5 H D Promyelocytes % (Man) 0 D Blast Cells % (Manual) 0 Nucleated RBC % 0 Metamyelocytes 2 D Hypochromia 0 Platelet Estimate Normal Polychromasia 0 Poikilocytosis 1+ Anisocytosis 0 Microcytosis 0 Macrocytosis 1+ Schistocytes 1+ Sodium 130 L Potassium 4.8 Chloride 91 L Carbon Dioxide 35 H Anion Gap 4 L BUN 30 H Creatinine 0.8 Creat Clearance w eGFR 67.85 Random Glucose 181 H Calcium 8.5 Phosphorus Magnesium Total Bilirubin AST ALT Alkaline Phosphatase Total Protein Albumin 08/03/18 05:10 WBC RBC Hgb Hct MCV MCH MCHC RDW Plt Count MPV Absolute Neuts (auto) Neutrophils % Neutrophils % (Manual) Band Neutrophils % Lymphocytes % Lymphocytes % (Manual) Monocytes % Monocytes % (Manual) Eosinophils % Eosinophils % (Manual) Basophils % Basophils % (Manual) Myelocytes % (Man) Promyelocytes % (Man) Blast Cells % (Manual) Nucleated RBC % Metamyelocytes Hypochromia Platelet Estimate Polychromasia Poikilocytosis Anisocytosis Microcytosis Macrocytosis Schistocytes Sodium 130 L Potassium 3.7 Chloride 88 L Carbon Dioxide 37 H Anion Gap 5 L BUN 30 H Creatinine 0.7 Creat Clearance w eGFR 79.15 Random Glucose 178 H Calcium 8.3 L Phosphorus 3.8 Magnesium 2.4 Total Bilirubin 0.5 AST 15 ALT 38 Alkaline Phosphatase 67 Total Protein 5.1 L Albumin 2.5 L Active Medications Generic Name Dose Route Start Last Admin Trade Name Freq PRN Reason Stop Dose Admin Atenolol 25 mg 08/03/18 10:00 Tenormin - PO DAILY [facility] Atorvastatin Calcium 10 mg 08/02/18 22:00 08/02/18 22:28 Lipitor - PO 10 mg HS AMAURI Administration Diltiazem HCl 120 mg 08/03/18 10:00 Cardizem Cd - PO DAILY A[facility] Enoxaparin Sodium 30 mg 08/02/18 10:00 08/02/18 09:16 Lovenox - SQ 30 mg DAILY A[facility] Administration Levofloxacin 250 mg in 50 mls @ 50 mls/hr 08/01/18 20:00 08/02/18 09:15 Levaquin 250 Mg Premixed Ivpb - IVPB 50 mls/hr DAILY AMAURI Administration Protocol Ipratropium [place] 1 amp 08/01/18 20:00 08/02/18 22:04 Atrovent 0.02% Nebulizer - NEB 1 amp RQID AMAURI Administration Levalbuterol HCl 0.63 mg 08/02/18 14:00 08/02/18 22:04 Xopenex IH Not Given RTID AMAURI Methylprednisolone Sodium Succinate 40 mg 08/01/18 21:00 08/03/18 02:17 Solu-Medrol - IVPUSH 40 mg Q6H-IV AMAURI Administration ASSESSMENT/PLAN: Patient is an 88 year old female with history of asthma, with numerous admissions to [facility] for asthma exacerbation, on home oxygen, no prior history of intubations, presents with complaint of shortness of breath. Acute hypoxic respiratory failure -Likely secondary to COPD exacerbation -Methylprednisone 40mg IV Q6H -Levalbuterol 0.63mg IH TID -Ipratropium 1amp QID -Lasix 40mg IV one time dose today. Monitor intake and output closely. -Pulmonology consult (Dr. Guzman) appreciated. -Blood cultures negative for growth at 24 hours. Urinary tract infection -Levofloxacin 250mg IV daily (day #2) -Urine cultures growing lactose fermenting gram negative bacteria Hypertension -Cardizem 120mg PO daily -Atenolol 25mg PO HS Hyperlipidemia -Atorvastatin 10mg PO HS Hyponatremia -Likely secondary to fluid overload -Lasix 40mg IV one time dose -Follow CMP FEN -No IV fluids -Hyponatremia. Follow CMP -regular diet Prophylaxis Lovenox 30mg subq daily Disposition -Continue care in medical-surgical floor Visit type - Emergency Visit Emergency Visit: Yes ED Registration Date: 08/01/18 Care time: The patient presented to the Emergency Department on the above date and was hospitalized for further evaluation of their emergent condition. - New Patient This patient is new to me today: No - Critical Care Critical Care patient: No - Discharge Referral Referred to [facility] Med P.C.: No
[2018-08-03] MEDS ORDERED: FUROSEMIDE 40 MG/4 ML INJECTABLE VIAL IVPUSH ONE (09:41)
[2018-08-03] MEDS: ENOXAPARIN NA (PORCINE) 30 MG/0.3 ML DISP.SYRIN SQ SCH (10:07)
[2018-08-03] MEDS: ATENOLOL 25 MG TABLET (FP) PO SCH (10:07)
--- NOTE | 2018-08-03 10:13 | PN ---
Progress Note (short form) - Note Progress Note: PULMONARY States still short of breath but slightly improved from yesterday. + nonproductive cough and wheezing. No fevers. Vital Signs Period Temp Pulse Resp BP Sys/Puga Pulse Ox Last 24 Hr 98 F-98.7 F 86-91 20-22 124-143/63-74 94 Gen: less tachypneic Heart: RRR Lung: bilateral rhonchi, wheezes Abd: soft, nontender Ext: + edema CBC, BMP 08/03/18 05:10 08/03/18 05:10 Active Medications Atenolol (Tenormin -) 25 mg PO DAILY [facility] Last Admin: 08/03/18 10:07 Dose: 25 mg Atorvastatin Calcium (Lipitor -) 10 mg PO HS [facility] Last Admin: 08/02/18 22:28 Dose: 10 mg Diltiazem HCl (Cardizem Cd -) 120 mg PO DAILY [facility] Last Admin: 08/03/18 10:07 Dose: 120 mg Enoxaparin Sodium (Lovenox -) 30 mg SQ DAILY [facility] Last Admin: 08/03/18 10:07 Dose: 30 mg Levofloxacin (Levaquin 250 Mg Premixed Ivpb -) 250 mg in 50 mls @ 50 mls/hr IVPB DAILY [facility]; Protocol Last Admin: 08/03/18 10:07 Dose: 50 mls/hr Ipratropium [place] (Atrovent 0.02% Nebulizer -) 1 amp NEB RQID [facility] Last Admin: 08/03/18 07:35 Dose: 1 amp Levalbuterol HCl (Xopenex) 0.63 mg IH RTID [facility] Last Admin: 08/02/18 22:04 Dose: Not Given Methylprednisolone Sodium Succinate (Solu-Medrol -) 40 mg IVPUSH Q6H-IV [facility] Last Admin: 08/03/18 08:51 Dose: 40 mg A/P Acute COPD Exacerbation Chronic Hypoxic Respiratory Failure Hyponatremia LV Diastolic Dysfunction - continue medrol at current dose - inhaled bronchodilators standing and PRN - O2 to keep SpO2 >90% - empiric antibiotics - DVT prophylaxis
[2018-08-03] MEDS ORDERED: PT OWN MED DRAWER 7, Y5N ONE ×3 (11:35→13:50)
--- NOTE | 2018-08-03 18:39 | PN ---
Teaching Attending Note Name of Resident: Gopal Phillips ATTENDING PHYSICIAN STATEMENT I saw and evaluated the patient. I reviewed the resident's note and discussed the case with the resident. I agree with the resident's findings and plan as documented. SUBJECTIVE: Feels some improvement. Less SOB. Reports dry cough. No fever. OBJECTIVE: Afebrile, Hemodynamically Stable. AAO x 2. Last Vital Signs Temp Pulse Resp BP Pulse Ox 98 F 75 20 144/74 96 08/03/18 17:05 08/03/18 17:05 08/03/18 17:05 08/03/18 17:05 08/03/18 09:00 HEENT - Atrauamatic, Normocephalic. Heart - S1, S2, SM Lungs - bibasal crackles and bilateral wheze throughout. Abdomen - Soft, non-tender. Bowel Sounds normal. Extremities - edema++. No calf tenderness. Laboratory Results - last 24 hr 08/03/18 08/03/18 05:10 05:10 WBC 13.5 H RBC 3.60 Hgb 11.3 Hct 32.3 L MCV 89.8 MCH 31.3 MCHC 34.8 RDW 14.8 Plt Count 238 MPV 7.1 L Sodium 130 L Potassium 3.7 Chloride 88 L Carbon Dioxide 37 H Anion Gap 5 L BUN 30 H Creatinine 0.7 Creat Clearance w eGFR 79.15 Random Glucose 178 H Calcium 8.3 L Phosphorus 3.8 Magnesium 2.4 Total Bilirubin 0.5 AST 15 ALT 38 Alkaline Phosphatase 67 Total Protein 5.1 L Albumin 2.5 L Current Medications Generic Name Dose Route Start Last Admin Trade Name Freq PRN Reason Stop Dose Admin Atenolol 25 mg 08/03/18 10:00 08/03/18 10:07 Tenormin - PO 25 mg DAILY [facility] Administration Atorvastatin Calcium 10 mg 08/02/18 22:00 08/02/18 22:28 Lipitor - PO 10 mg HS A[facility] Administration Diltiazem HCl 120 mg 08/03/18 10:00 08/03/18 10:07 Cardizem Cd - PO 120 mg DAILY [facility] Administration Enoxaparin Sodium 30 mg 08/02/18 10:00 08/03/18 10:07 Lovenox - SQ 30 mg DAILY [facility] Administration Levofloxacin 250 mg in 50 mls @ 50 mls/hr 08/01/18 20:00 08/03/18 10:07 Levaquin 250 Mg Premixed Ivpb - IVPB 50 mls/hr DAILY [facility] Administration Protocol Ipratropium [place] 1 amp 08/01/18 20:00 08/03/18 15:30 Atrovent 0.02% Nebulizer - NEB 1 amp RQID [facility] Administration Levalbuterol HCl 0.63 mg 08/02/18 14:00 08/03/18 15:30 Xopenex IH 0.63 mg RTID AMA[facility] Administration Methylprednisolone Sodium Succinate 40 mg 08/01/18 21:00 08/03/18 14:49 Solu-Medrol - IVPUSH 40 mg Q6H-IV AMA[facility] Administration ASSESSMENT AND PLAN: 88 year old female with history of Dementia, HTN, HLD, CRF sec to COPD/Asthma, admitted with increasing SOB and non-productive cough. 1. Acute on Chronic Hypoxic respiratory failure-secondary to Acute Exacerbation COPD/Asthma and Acute diastolic CHF. Echo - normal EF, grade 1 diastolic dysfunction. Received IV Lasix x 2 days - for trial of oral Lasix from 08/04/18 Continue IV Solumedrol, Levaquin. 2. UTI Urine Cx pos for LFGNB Afebrile, Hemodynamically Stable. Continue Levofloxacin pending final ID and Sens. 3. Hyponatremia ? sec to volume overload due to CHF. Will monitor Na level in response to Lasix diuresis. 4. HTN - Continue Cardizem, Metoprolol. 5. HLD - Continue Statin. 6. Possible Dementia - likely diagnosis, AAO x 2. No evidence of acute confusional state. Will monitor mental status in response to treatment of UTI. DVT Px - Lovenox SQ
[2018-08-03] MEDS: ATORVASTATIN CA 10 MG TABLET (FP) PO SCH (21:58)
[2018-08-04] MEDS: methylPREDNISolone NA SUCC 40 MG/1 ML VIAL IVPUSH SCH ×4 (02:19→21:29)
[2018-08-04 07:08] LABS: HEMATOCRIT 30.9 % (32.4-45.2); MCH 31.6 pg (25.7-33.7); MCHC 35.6 g/dl (32.0-36.0); MEAN CELL VOLUME 88.6 fl (80-96); MEAN PLT VOLUME 7.2 fl (7.5-11.1); PLATELET COUNT 224 K/MM3 (134-434); RBC 3.48 M/mm3 (3.60-5.2); RDW 14.5 % (11.6-15.6); WHITE BLOOD COUNT 12.8 K/mm3 (4.0-10.0)
[2018-08-04 07:35] LABS: ALBUMIN 2.4 g/dl (3.4-5.0); ALK PHOS 65 U/L (45-117); ANION GAP 6 MMOL/L (8-16); BILIRUBIN,TOTAL 0.6 mg/dL (0.2-1); BLOOD UREA NITROGEN 29 mg/dL (7-18); CALCIUM 8.2 mg/dL (8.5-10.1); CHLORIDE 84 mmol/L (98-107); CO2 35 mmol/L (21-32); CREATININE 0.7 mg/dL (0.55-1.3); GLUCOSE,RANDOM 191 mg/dL (74-106); POTASSIUM 3.9 mmol/L (3.5-5.1); SGOT/AST 17 U/L (15-37); SGPT/ALT 35 U/L (13-61); SODIUM 125 mmol/L (136-145); TOT PROT 4.8 g/dl (6.4-8.2)
[2018-08-04] MEDS: IPRATROPIUM BR 0.02% 0.5 MG/2.5 ML VIAL.NEB. NEB SCH ×4 (08:34→20:00)
[2018-08-04] MEDS: LEVALBUTEROL HCL 0.63 MG/3 ML VIAL.NEB. IH SCH ×3 (10:30→20:00)
[2018-08-04] MEDS: ATENOLOL 25 MG TABLET (FP) PO SCH (11:22)
[2018-08-04] MEDS: ENOXAPARIN NA (PORCINE) 30 MG/0.3 ML DISP.SYRIN SQ SCH (11:22)
[2018-08-04] MEDS ORDERED: PT OWN MED DRAWER 7, Y5N ONE ×2 (11:27→20:02)
--- NOTE | 2018-08-04 13:11 | CONSULT ---
Consult - text type - Consultation Consultation Note: Renal consult for hyponatremia This is a 88 year old woman with hx of COPD who presented with sob/cough and developed hyponatremia during the course of the hospitalization. Pt denies any hx of hyponatremia. Has been on IV steroids and IV lasix in the hospital. No CP , abd pain, N/V/D, fever or chills. No confusion, lethargy, weakness. PMhx: as above Allergies: as listed in [facility] Hx: NC Social Hx: No T/A/D ROS: as per HPI Home Medications Medication Instructions Recorded Atenolol [Tenormin -] 25 mg PO DAILY 08/02/18 Atorvastatin Ca [Lipitor] 10 mg PO HS 08/02/18 Diltiazem Cd [Cardizem Cd -] 120 mg PO DAILY 08/02/18 Arformoterol Tartrate [Brovana] 2 ml IH BID 08/03/18 Aspirin Coated [Ecotrin -] 81 mg PO DAILY 08/03/18 Colesevelam HCl 625 mg PO BID 08/03/18 Ferrous Sulfate 325 mg PO ONCE 08/03/18 Fluticasone Propionate [Flovent 100 mcg IH BID 08/03/18 Diskus] Folic Acid 1 mg PO ONCE 08/03/18 Ipratropium 0.02% Nebulizer 2.5 ml IH QID 08/03/18 LORazepam [Ativan] 1 mg PO PRN 08/03/18 Montelukast Sodium [Singulair] 10 mg PO ONCE 08/03/18 Pantoprazole Sodium 40 mg PO BID 08/03/18 predniSONE [Deltasone -] 40 mg PO DAILY 08/03/18 Vital Signs Temperature 98.1 F 08/04/18 10:00 Pulse Rate 78 08/04/18 10:00 Respiratory Rate 24 H 08/04/18 10:00 Blood Pressure 125/65 08/04/18 10:00 O2 Sat by Pulse Oximetry (%) 97 08/03/18 20:48 Intake & Output 08/01/18 08/02/18 08/03/18 08/04/18 23:59 23:59 23:59 23:59 Intake Total 1250 1030 90 Balance 1250 1030 90 Weight 56.88 kg 55.792 kg 56.245 kg NAD on NC O2 neck supple, no JVD RRR, no M/R CTA, no rales soft NT/ND trace LE edema, cyanosis or clubbing CBC, BMP 08/04/18 06:30 08/04/18 06:30 Current Medications Atenolol (Tenormin -) 25 mg PO DAILY [facility] Last Admin: 08/04/18 11:22 Dose: 25 mg Atorvastatin Calcium (Lipitor -) 10 mg PO HS [facility] Last Admin: 08/03/18 21:58 Dose: 10 mg Diltiazem HCl (Cardizem Cd -) 120 mg PO DAILY [facility] Last Admin: 08/04/18 11:21 Dose: 120 mg Enoxaparin Sodium (Lovenox -) 30 mg SQ DAILY [facility] Last Admin: 08/04/18 11:22 Dose: 30 mg Levofloxacin (Levaquin 250 Mg Premixed Ivpb -) 250 mg in 50 mls @ 50 mls/hr IVPB DAILY [facility]; Protocol Last Admin: 08/04/18 12:31 Dose: 50 mls/hr Ipratropium [place] (Atrovent 0.02% Nebulizer -) 1 amp NEB RQID [facility] Last Admin: 08/04/18 08:34 Dose: 1 amp Levalbuterol HCl (Xopenex) 0.63 mg IH RTID [facility] Last Admin: 08/04/18 11:21 Dose: Not Given Methylprednisolone Sodium Succinate (Solu-Medrol -) 40 mg IVPUSH Q6H-IV [facility] Last Admin: 08/04/18 12:31 Dose: 40 mg 88 year old woman with hx of COPD who presented with sob/cough and developed hyponatremia during the course of the hospitalization. Pt denies any hx of hyponatremia. #Hyponatremia (from HF vs. SIADH from lung pathology) #COPD exacerbation #diastolic HF check urine studies for Urine Na, Urine OSM check TSH, Cortisol levels fluid restriction of 1L daily repeat Na this evening continue steroids, attempt to minimize free water infusion Thank you Will follow Benja Ng DO
--- NOTE | 2018-08-04 13:40 | PN ---
Physical Exam: SUBJECTIVE: Patient seen and examined at bedside this morning. She endorses continued shortness of breath with nonproductive cough. She denies subjective fevers, chills, chest pain, palpitations, abdominal pain, nausea, vomiting. OBJECTIVE: Vital Signs Period Temp Pulse Resp BP Sys/Puga Pulse Ox Last 24 Hr 98 F-98.8 F 72-78 20-24 124-144/54-74 97-97 GENERAL: The patient is awake, alert, and oriented, in no acute distress. On 2L nasal canula. HEAD: Normocephalic, atraumatic. EYES: PERRL, extraocular movements intact, sclera anicteric, conjunctiva clear. ENT: Oropharynx clear without exudates, dry mucous membranes. NECK: Trachea midline, supple without lymphadenopathy. LUNGS: Improving air entry bilaterally. Wheezing, coarse rhonchi auscultated bilaterally. HEART: Regular rate and rhythm, S1, S2 auscultated without murmur, rubs, gallops. ABDOMEN: Soft, nondistended, nontender to light and deep palpation X4 quadrants. No guarding, no rebound tenderness. Normoactive bowel sounds x4 quadrants. EXTREMITIES: 2+ radial, dorsalis pedis pulses bilaterally. Warm, well-perfused. 1+ bilateral lower extremity edema. NEUROLOGICAL: Cranial nerves II through XII grossly intact. PSYCH: Normal mood, normal affect upon my encounter. SKIN: Warm, dry. Laboratory Results - last 24 hr 08/04/18 08/04/18 06:30 06:30 WBC 12.8 H RBC 3.48 L Hgb 11.0 Hct 30.9 L MCV 88.6 MCH 31.6 MCHC 35.6 RDW 14.5 Plt Count 224 MPV 7.2 L Sodium 125 L Potassium 3.9 Chloride 84 L Carbon Dioxide 35 H Anion Gap 6 L BUN 29 H Creatinine 0.7 Creat Clearance w eGFR 79.15 Random Glucose 191 H Calcium 8.2 L Total Bilirubin 0.6 AST 17 ALT 35 Alkaline Phosphatase 65 Total Protein 4.8 L Albumin 2.4 L Active Medications Generic Name Dose Route Start Last Admin Trade Name Freq PRN Reason Stop Dose Admin Atenolol 25 mg 08/03/18 10:00 08/04/18 11:22 Tenormin - PO 25 mg DAILY A[facility] Administration Atorvastatin Calcium 10 mg 08/02/18 22:00 08/03/18 21:58 Lipitor - PO 10 mg HS AMAURI Administration Diltiazem HCl 120 mg 08/03/18 10:00 08/04/18 11:21 Cardizem Cd - PO 120 mg DAILY [facility] Administration Enoxaparin Sodium 30 mg 08/02/18 10:00 08/04/18 11:22 Lovenox - SQ 30 mg DAILY AMAURI Administration Levofloxacin 250 mg in 50 mls @ 50 mls/hr 08/01/18 20:00 08/04/18 12:31 Levaquin 250 Mg Premixed Ivpb - IVPB 50 mls/hr DAILY A[facility] Administration Protocol Ipratropium [place] 1 amp 08/01/18 20:00 08/04/18 08:34 Atrovent 0.02% Nebulizer - NEB 1 amp RQID AMAURI Administration Levalbuterol HCl 0.63 mg 08/02/18 14:00 08/04/18 11:21 Xopenex IH Not Given RTID AMAURI Methylprednisolone Sodium Succinate 40 mg 08/01/18 21:00 08/04/18 12:31 Solu-Medrol - IVPUSH 40 mg Q6H-IV AMAURI Administration ASSESSMENT/PLAN: Patient is an 88 year old female with history of asthma, with numerous admissions to [facility] for asthma exacerbation, on home oxygen, no prior history of intubations, presents with complaint of shortness of breath. Acute hypoxic respiratory failure -Likely secondary to COPD exacerbation -Methylprednisone 40mg IV Q6H -Levalbuterol 0.63mg IH TID -Ipratropium 1amp QID -Lasix 40mg IV one time dose today. Monitor intake and output closely. -Pulmonology consult (Dr. Guzman) appreciated. -Blood cultures negative for growth at 48 hours. Urinary tract infection -Levofloxacin 250mg IV daily (day #3) -ID consult (Dr. Jerez) appreciated. -Urine cultures growing ESBL E.coli -Contact precautions Hypertension -Cardizem 120mg PO daily -Atenolol 25mg PO HS Hyperlipidemia -Atorvastatin 10mg PO HS Hyponatremia -Nephrology consult (Dr. Ng) appreciated. -Likely secondary to fluid overload vs. SIADH -Follow urine electrolytes -Follow CMP FEN -No IV fluids -Hyponatremia. Follow CMP -Regular diet Prophylaxis Lovenox 30mg subq daily Disposition -Continue care in medical-surgical floor Visit type - Emergency Visit Emergency Visit: Yes ED Registration Date: 08/01/18 Care time: The patient presented to the Emergency Department on the above date and was hospitalized for further evaluation of their emergent condition. - New Patient This patient is new to me today: No - Critical Care Critical Care patient: No - Discharge Referral Referred to [facility] Med [facility] No
--- NOTE | 2018-08-04 15:09 | PN ---
Progress Note (short form) - Note Progress Note: PULMONARY Does not feel well today. Breathing about the same as yesterday. +nonproductive cough and wheezing. No fevers. Vital Signs Period Temp Pulse Resp BP Sys/Puga Pulse Ox Last 24 Hr 97.7 F-98.8 F 72-78 20-24 124-153/54-74 97-97 Gen: anxious, less tachypneic Heart: RRR Lung: bilateral rhonchi, wheezes Abd: soft, nontender Ext: + edema CBC, BMP 08/04/18 06:30 08/04/18 06:30 Active Medications Atenolol (Tenormin -) 25 mg PO DAILY [facility] Last Admin: 08/04/18 11:22 Dose: 25 mg Atorvastatin Calcium (Lipitor -) 10 mg PO HS [facility] Last Admin: 08/03/18 21:58 Dose: 10 mg Diltiazem HCl (Cardizem Cd -) 120 mg PO DAILY [facility] Last Admin: 08/04/18 11:21 Dose: 120 mg Enoxaparin Sodium (Lovenox -) 30 mg SQ DAILY [facility] Last Admin: 08/04/18 11:22 Dose: 30 mg Levofloxacin (Levaquin 250 Mg Premixed Ivpb -) 250 mg in 50 mls @ 50 mls/hr IVPB DAILY [facility]; Protocol Last Admin: 08/04/18 12:31 Dose: 50 mls/hr Ipratropium [place] (Atrovent 0.02% Nebulizer -) 1 amp NEB RQID [facility] Last Admin: 08/04/18 08:34 Dose: 1 amp Levalbuterol HCl (Xopenex) 0.63 mg IH RTID [facility] Last Admin: 08/04/18 11:21 Dose: Not Given Methylprednisolone Sodium Succinate (Solu-Medrol -) 40 mg IVPUSH Q6H-IV [facility] Last Admin: 08/04/18 12:31 Dose: 40 mg A/P Acute COPD Exacerbation Chronic Hypoxic Respiratory Failure Hyponatremia LV Diastolic Dysfunction - continue medrol at current dose - inhaled bronchodilators standing and PRN - O2 to keep SpO2 >90% - empiric antibiotics - lasix as needed - DVT prophylaxis
--- NOTE | 2018-08-04 17:05 | PN ---
Progress Note (short form) - Note Progress Note: ID consult dictated imp/reccd 88 yo female PMH COPD home Oxygen admitted with sob and nonproductive cough 08/01 she lives near [facility] and goes to the ER there almost every day being treated for copd exacerbation but reports no improvement asked to see for positive urine culture she has no symptoms of UTI- no dysuria, no suprapubic or flank pain no fevers or chills does complain of constipation agree with influenza screen would repeat cxray as she has not improved copd exacerbation asymptomatic bacteriuria- no need to treat but no need to isolate (contact)- nedra esbl constipation Problem List - Problems (1) COPD with exacerbation Code(s): J44.1 - CHRONIC OBSTRUCTIVE PULMONARY DISEASE W (ACUTE) EXACERBATION (2) Asymptomatic bacteriuria Code(s): R82.71 - BACTERIURIA (3) ESBL E. coli carrier Code(s): Z22.39 - CARRIER OF OTHER SPECIFIED BACTERIAL DISEASES (4) Constipation Code(s): K59.00 - CONSTIPATION, UNSPECIFIED
--- NOTE | 2018-08-04 17:13 | PN ---
Teaching Attending Note Name of Resident: Gopal Phillips ATTENDING PHYSICIAN STATEMENT I saw and evaluated the patient. I reviewed the resident's note and discussed the case with the resident. I agree with the resident's findings and plan as documented. SUBJECTIVE: Intermittent SOB and ongoing non-productive cough. No fever. OBJECTIVE: Afebrile, Hemodynamically Stable. AAO x 2. Last Vital Signs Temp Pulse Resp BP Pulse Ox 97.7 F 77 20 153/72 97 08/04/18 14:56 08/04/18 14:56 08/04/18 14:56 08/04/18 14:56 08/03/18 20:48 Heart - S1, S2, SM Lungs - bibasal crackles and bilateral wheeze throughout. Abdomen - Soft, non-tender. Bowel Sounds normal. Extremities - edema+. No calf tenderness. Neuro - AAO x 2. Tone/Power normal all 4 extremities. Laboratory Results - last 24 hr 08/04/18 08/04/18 08/04/18 06:30 06:30 13:35 WBC 12.8 H RBC 3.48 L Hgb 11.0 Hct 30.9 L MCV 88.6 MCH 31.6 MCHC 35.6 RDW 14.5 Plt Count 224 MPV 7.2 L Sodium 125 L Potassium 3.9 Chloride 84 L Carbon Dioxide 35 H Anion Gap 6 L BUN 29 H Creatinine 0.7 Creat Clearance w eGFR 79.15 Random Glucose 191 H Serum Osmolality 279 Calcium 8.2 L Total Bilirubin 0.6 AST 17 ALT 35 Alkaline Phosphatase 65 Total Protein 4.8 L Albumin 2.4 L Current Medications Generic Name Dose Route Start Last Admin Trade Name Ianq PRN Reason Stop Dose Admin Atenolol 25 mg 08/03/18 10:00 08/04/18 11:22 Tenormin - PO 25 mg DAILY [facility] Administration Atorvastatin Calcium 10 mg 08/02/18 22:00 08/03/18 21:58 Lipitor - PO 10 mg HS [facility] Administration Diltiazem HCl 120 mg 08/03/18 10:00 08/04/18 11:21 Cardizem Cd - PO 120 mg DAILY [facility] Administration Enoxaparin Sodium 30 mg 08/02/18 10:00 08/04/18 11:22 Lovenox - SQ 30 mg DAILY [facility] Administration Levofloxacin 250 mg in 50 mls @ 50 mls/hr 08/01/18 20:00 08/04/18 12:31 Levaquin 250 Mg Premixed Ivpb - IVPB 50 mls/hr DAILY [facility] Administration Protocol Ipratropium [place] 1 amp 08/01/18 20:00 08/04/18 08:34 Atrovent 0.02% Nebulizer - NEB 1 amp RQID [facility] Administration Levalbuterol HCl 0.63 mg 08/02/18 14:00 08/04/18 11:21 Xopenex IH Not Given RTID [facility] Methylprednisolone Sodium Succinate 40 mg 08/01/18 21:00 08/04/18 16:23 Solu-Medrol - IVPUSH 40 mg Q6H-IV [facility] Administration ASSESSMENT AND PLAN: 88 year old female with history of Dementia, HTN, HLD, CRF sec to COPD/Asthma, admitted with increasing SOB and non-productive cough. 1. Acute on Chronic Hypoxic respiratory failure-secondary to Acute Exacerbation COPD/Asthma and Acute diastolic CHF. Echo - normal EF, grade 1 diastolic dysfunction. Received IV Lasix 40mg x 2 days Continue IV Solumedrol, Levaquin, Xopenex Nebs. Respiratory status not significantly improved - Flu swab and CXR requested. Pulm following. 2. Bacteriuria Urine Cx pos for ESBL Afebrile, Hemodynamically Stable. No need for treatment as per ID 3. Hyponatremia - worsened s/p Lasix IV diuresis. Etiology unclear - further eval and recommendations by Nephrology appreciated. 4. HTN - Continue Cardizem, Atenolol 5. HLD - Continue Statin. 6. Possible Dementia - likely diagnosis, AAO x 2. No evidence of acute confusional state. No family available at bedside for collateral history. DVT Px - Lovenox SQ GI Px - PPI
[2018-08-04] MEDS ORDERED: predniSONE 20 MG TABLET (UD) PO SCH (17:30)
[2018-08-04] MEDS ORDERED: LORazepam 1 MG TABLET PO SCH (17:30)
[2018-08-04] MEDS ORDERED: FOLIC ACID 1 MG PO SCH (17:30)
[2018-08-04] MEDS ORDERED: SENNOSIDES 8.6MG TABLET (FP) PO PRN (18:06)
[2018-08-04] MEDS ORDERED: POLYETHYLENE GLYCOL 3350 119 GM BTL PO PRN (18:06)
[2018-08-04] MEDS ORDERED: SODIUM CHLORIDE 500 ML IV STA (19:20)
[2018-08-04] MEDS ORDERED: LORazepam 1 MG TABLET PO PRN (19:27)
--- NOTE | 2018-08-04 19:33 | CONS ---
DATE OF CONSULTATION: DATE OF DICTATION: 05/06/2018 INFECTIOUS DISEASE CONSULTATION REQUESTING PHYSICIAN: Hospitalist Service CONSULTING PHYSICIAN: Reagan Russell M.D. HISTORY OF PRESENT ILLNESS: A very pleasant 88-year-old woman who lives here in [place] with her son. She has a history of COPD and is on home oxygen. She reports she lives near [facility] and goes to the ER there almost every day because she cannot breathe. She is now admitted on August 01 to [facility] for the first time with shortness of breath and a nonproductive cough. She is being treated for a COPD exacerbation but reports no improvement since admission. I am asked to see her for a positive urine culture. She has no symptoms of UTI. She has no dysuria, suprapubic or flank pain. She has had no fevers or chills. She does complain of constipation. She notes as well that she really has not improved at all from the standpoint of her breathing. PAST MEDICAL HISTORY: Notable for her asthma, COPD. She uses oxygen at home. SURGICAL HISTORY: Unremarkable. SOCIAL HISTORY: There is no history of tobacco, alcohol, or substance use. She lives with her son. She is originally from [place] but has not been back in many years. ALLERGIES: She is allergic to ALBUTEROL and LOSARTAN as well as . MEDICATION: Her medications at home include atenolol, atorvastatin, Cardizem, , Ecotrin, ferrous sulfate, Flovent, nebulizer, folic acid, Singulair, Ativan, pantoprazole, and prednisone. FAMILY HISTORY: Noncontributory. REVIEW OF SYSTEMS: She notes she has constipation. She has no urinary symptoms, and her breathing is not improved at all. PHYSICAL EXAMINATION: GENERAL: She is an elderly woman who looks quite uncomfortable. She still is having some shortness of breath. VITAL SIGNS: Temperature 97.2, pulse 71, blood pressure 135/72, respiratory rate 20. She is wearing nasal cannula oxygen. HEENT: Normocephalic. Eyes are anicteric. NECK: Supple. She has no thrush. LUNGS: Bilateral rhonchi and wheezes. HEART: Regular rate and rhythm. ABDOMEN: Soft, nontender. She has no suprapubic or CVA tenderness. EXTREMITIES: Trace pretibial edema. LABORATORY: White count is 12.8, hemoglobin is 11, platelets are 224. BUN and creatinine are 29 and 0.7. Liver function tests are normal with an albumin of 2.4. Urinalysis notable for 2 white cells. Urine blood cultures from admission are negative. Urine culture has grown E. coli ESBL insurance sales producer. IMPRESSION: 1. In summary, this is an 88-year-old woman admitted with chronic obstructive pulmonary disease exacerbation that is being treated. I would agree with the influenza screen and repeat chest x-ray, as she had not improved. 2. Asymptomatic bacteruria, no need to treat for urinary tract infection, but we do need to isolate her for this Escherichia coli extended-spectrum beta-lactamases insurance sales producer, which is contact isolation, and lastly constipation which needs to be treated. Further recommendations to follow. REAGAN RUSSELL M.D. DON/[id number]
[2018-08-04] MEDS: ATORVASTATIN CA 10 MG TABLET (FP) PO SCH (21:29)
[2018-08-04] MEDS: MONTELUKAST NA 10 MG TABLET PO SCH (21:29)
[2018-08-04] MEDS: MOMETASONE FUROATE 220 MCG/IH INHALER IH SCH (21:29)
[2018-08-04] MEDS: DOCUSATE NA 100 MG/10 ML UNIT-DOSE CUPS PO SCH (21:29)
[2018-08-05] MEDS: methylPREDNISolone NA SUCC 40 MG/1 ML VIAL IVPUSH SCH ×2 (02:20→09:32)
[2018-08-05] MEDS: ARFORMOTEROL TARTRATE 15 MCG/2 ML VIAL NEB SCH ×2 (07:20→19:54)
[2018-08-05] MEDS: IPRATROPIUM BR 0.02% 0.5 MG/2.5 ML VIAL.NEB. NEB SCH ×3 (07:20→15:00)
[2018-08-05 07:30] LABS: BASO % 0.2 % (0-2.0); EOS % 0.1 % (0-4.5); HEMATOCRIT 31.6 % (32.4-45.2); MCHC 34.6 g/dl (32.0-36.0); MEAN CELL VOLUME 89.4 fl (80-96); MEAN PLT VOLUME 7.2 fl (7.5-11.1); MONO % 2.7 % (3.8-10.2); PLATELET COUNT 216 K/MM3 (134-434); RBC 3.53 M/mm3 (3.60-5.2); RDW 14.4 % (11.6-15.6); WHITE BLOOD COUNT 12.1 K/mm3 (4.0-10.0)
[2018-08-05 07:59] LABS: ANION GAP 5 MMOL/L (8-16); BLOOD UREA NITROGEN 28 mg/dL (7-18); CALCIUM 7.7 mg/dL (8.5-10.1); CHLORIDE 87 mmol/L (98-107); CO2 36 mmol/L (21-32); CREATININE 0.7 mg/dL (0.55-1.3); GLUCOSE,RANDOM 203 mg/dL (74-106); MAGNESIUM 2.2 mg/dL (1.8-2.4); POTASSIUM 4.1 mmol/L (3.5-5.1); SODIUM 128 mmol/L (136-145)
--- NOTE | 2018-08-05 07:59 | PN ---
Physical Exam: SUBJECTIVE: Patient seen and examined at bedside this morning. She admits improvement with her shortness of breath. Denies subjective fevers, chills, cough. OBJECTIVE: Vital Signs Period Temp Pulse Resp BP Sys/Puga Pulse Ox Last 24 Hr 97.2 F-98.1 F 71-80 20-24 125-153/65-72 GENERAL: The patient is awake, alert, and oriented, in no acute distress. On 2L nasal canula. HEAD: Normocephalic, atraumatic. EYES: PERRL, extraocular movements intact, sclera anicteric, conjunctiva clear. ENT: Oropharynx clear without exudates, dry mucous membranes. NECK: Trachea midline, supple without lymphadenopathy. LUNGS: Improving air entry bilaterally. Faint wheezing, and rhonchi auscultated bilaterally. HEART: Regular rate and rhythm, S1, S2 auscultated without murmur, rubs, gallops. ABDOMEN: Soft, nondistended, nontender to light and deep palpation X4 quadrants. No guarding, no rebound tenderness. Normoactive bowel sounds x4 quadrants. EXTREMITIES: 2+ radial, dorsalis pedis pulses bilaterally. Warm, well-perfused. 1+ bilateral lower extremity edema. NEUROLOGICAL: Cranial nerves II through XII grossly intact. PSYCH: Normal mood, normal affect upon my encounter. SKIN: Warm, dry. Laboratory Results - last 24 hr 08/04/18 08/04/18 08/04/18 13:35 17:02 17:02 Sodium Serum Osmolality 279 Urine Osmolality 570 Ur Random Sodium Urine Creatinine Influenza A (Rapid) Negative Influenza B (Rapid) Negative 08/04/18 08/04/18 08/04/18 17:02 17:02 18:15 Sodium 124 L Serum Osmolality Urine Osmolality Ur Random Sodium < 18 L Urine Creatinine 50.0 Influenza A (Rapid) Influenza B (Rapid) 08/05/18 01:00 Sodium 123 L Serum Osmolality Urine Osmolality Ur Random Sodium Urine Creatinine Influenza A (Rapid) Influenza B (Rapid) Active Medications Generic Name Dose Route Start Last Admin Trade Name Freq PRN Reason Stop Dose Admin Arformoterol Tartrate 1 amp 08/04/18 22:45 Brovana (Restricted To Pulmonology/Resp) - NEB RBID [facility] Aspirin 81 mg 08/05/18 10:00 Ecotrin - PO DAILY [facility] Atenolol 25 mg 08/03/18 10:00 08/04/18 11:22 Tenormin - PO 25 mg DAILY [facility] Administration Atorvastatin Calcium 10 mg 08/02/18 22:00 08/04/18 21:29 Lipitor - PO 10 mg HS [facility] Administration Diltiazem HCl 120 mg 08/03/18 10:00 08/04/18 11:21 Cardizem Cd - PO 120 mg DAILY [facility] Administration Docusate Sodium 100 mg 08/04/18 22:00 08/04/18 21:29 Colace Liquid - PO 100 mg BID [facility] Administration Enoxaparin Sodium 30 mg 08/02/18 10:00 08/04/18 11:22 Lovenox - SQ 30 mg DAILY [facility] Administration Folic Acid 1 mg 08/04/18 18:44 Folic Acid - PO DAILY [facility] Levofloxacin 250 mg in 50 mls @ 50 mls/hr 08/01/18 20:00 08/04/18 12:31 Levaquin 250 Mg Premixed Ivpb - IVPB 50 mls/hr DAILY [facility] Administration Protocol Ipratropium [place] 1 amp 08/01/18 20:00 08/04/18 20:00 Atrovent 0.02% Nebulizer - NEB 1 amp RQID [facility] Administration Levalbuterol HCl 0.63 mg 08/02/18 14:00 08/04/18 20:00 Xopenex IH 0.63 mg RTID [facility] Administration Lorazepam 1 mg 08/04/18 19:27 08/04/18 21:40 Ativan - PO 1 mg DAILY PRN Administration ANXIETY Methylprednisolone Sodium Succinate 40 mg 08/01/18 21:00 08/05/18 02:20 Solu-Medrol - IVPUSH 40 mg Q6H-IV [facility] Administration Mometasone Furoate 2 puff 08/04/18 22:00 08/04/18 21:29 Asmanex 220mcg - IH 2 puff HS [facility] Administration Montelukast Sodium 10 mg 08/04/18 22:00 08/04/18 21:29 Singulair - PO 10 mg HS [facility] Administration Polyethylene Glycol 17 gm 08/04/18 18:06 Miralax (For Daily Use) - PO DAILY PRN CONSTIP[facility] Prednisone 40 mg 08/05/18 10:00 Deltasone - PO DAILY [facility] Senna 2 tab 08/04/18 18:06 08/05/18 02:19 Senna - PO 2 tab HS PRN Administration CONSTIPATION ASSESSMENT/PLAN: Patient is an 88 year old female with history of asthma, with numerous admissions to [facility] for asthma exacerbation, on home oxygen, no prior history of intubations, presents with complaint of shortness of breath. Acute hypoxic respiratory failure -Likely secondary to COPD exacerbation -Methylprednisone transitioned to Prednisone 60mg PO today. -Prednisone 40mg for the next 5 days. -Levalbuterol 0.63mg IH TID -Ipratropium 1amp QID -Pulmonology consult (Dr. Guzman) appreciated. -Blood cultures negative for growth at 72 hours. -Levofloxacin 250mg IV daily (day #5). Final day of empiric antibiotics. -Influeza A/B negative -Repeat chest radiograph negative for infiltrates. Leukocytosis -Likely secondary to steroid administration. -Patient has completed 5 days of Levofloxacin course -Follow CBC Urinary tract infection -Urine cultures growing ESBL E.coli -ID consult (Dr. Jerez) appreciated. No need to treat at this time. -Contact precautions Hypertension -Cardizem 120mg PO daily -Atenolol 25mg PO HS Hyperlipidemia -Atorvastatin 10mg PO HS Hyponatremia -Nephrology consult (Dr. Ng) appreciated. -Likely secondary to hypovolemic hyponatremia -Urine sodium less than 18. FeNa 0.2% -Begin NaCl tablet BID -Follow Na Q12H FEN -No IV fluids -Hyponatremia. Follow CMP -Sodium controlled diet Prophylaxis Lovenox 30mg subq daily Disposition -Continue care in medical-surgical floor. Visit type - Emergency Visit Emergency Visit: Yes ED Registration Date: 08/01/18 Care time: The patient presented to the Emergency Department on the above date and was hospitalized for further evaluation of their emergent condition. - New Patient This patient is new to me today: No - Critical Care Critical Care patient: No - Discharge Referral Referred to [facility] No
[2018-08-05 09:08] LABS: PHOSPHOROUS 2.6 mg/dL (2.5-4.9)
[2018-08-05] MEDS ORDERED: predniSONE 20 MG TABLET (UD) PO ONE (09:30)
[2018-08-05] MEDS ORDERED: PT OWN MED DRAWER 7, Y5N ONE ×2 (09:57→14:02)
--- NOTE | 2018-08-05 09:58 | PN ---
Progress Note (short form) - Note Progress Note: PULMONARY Breathing slowly improving. +nonproductive cough and wheezing. No fevers. Vital Signs Period Temp Pulse Resp BP Sys/Puga Pulse Ox Last 24 Hr 97.7 F-98.8 F 72-78 20-24 124-153/54-74 97-97 Gen: anxious, less tachypneic Heart: RRR Lung: scattered rhonchi, wheezes Abd: soft, nontender Ext: + edema CBC, BMP 08/05/18 06:05 08/05/18 06:05 Active Medications Arformoterol Tartrate (Brovana (Restricted To Pulmonology/Resp) -) 1 amp NEB RBID [facility] Aspirin (Ecotrin -) 81 mg PO DAILY [facility] Atenolol (Tenormin -) 25 mg PO DAILY [facility] Last Admin: 08/04/18 11:22 Dose: 25 mg Atorvastatin Calcium (Lipitor -) 10 mg PO HS [facility] Last Admin: 08/04/18 21:29 Dose: 10 mg Diltiazem HCl (Cardizem Cd -) 120 mg PO DAILY [facility] Last Admin: 08/04/18 11:21 Dose: 120 mg Docusate Sodium (Colace Liquid -) 100 mg PO BID [facility] Last Admin: 08/04/18 21:29 Dose: 100 mg Enoxaparin Sodium (Lovenox -) 30 mg SQ DAILY [facility] Last Admin: 08/04/18 11:22 Dose: 30 mg Folic Acid (Folic Acid -) 1 mg PO DAILY [facility] Levofloxacin (Levaquin 250 Mg Premixed Ivpb -) 250 mg in 50 mls @ 50 mls/hr IVPB DAILY [facility]; Protocol Stop: 08/06/18 09:00 Last Admin: 08/04/18 12:31 Dose: 50 mls/hr Ipratropium [place] (Atrovent 0.02% Nebulizer -) 1 amp NEB RQID [facility] Last Admin: 08/04/18 20:00 Dose: 1 amp Levalbuterol HCl (Xopenex) 0.63 mg IH RTID [facility] Last Admin: 08/04/18 20:00 Dose: 0.63 mg Lorazepam (Ativan -) 1 mg PO DAILY PRN PRN Reason: ANXIETY Last Admin: 08/04/18 21:40 Dose: 1 mg Mometasone Furoate (Asmanex 220mcg -) 2 puff IH HS [facility] Last Admin: 08/04/18 21:29 Dose: 2 puff Montelukast Sodium (Singulair -) 10 mg PO HS [facility] Last Admin: 08/04/18 21:29 Dose: 10 mg Polyethylene Glycol (Miralax (For Daily Use) -) 17 gm PO DAILY PRN PRN Reason: CONSTIPATION Prednisone (Deltasone -) 40 mg PO DAILY [facility] Senna (Senna -) 2 tab PO HS PRN PRN Reason: CONSTIPATION Last Admin: 08/05/18 02:19 Dose: 2 tab A/P Acute COPD Exacerbation Chronic Hypoxic Respiratory Failure Hyponatremia LV Diastolic Dysfunction - prednisone taper - inhaled bronchodilators standing and PRN - O2 to keep SpO2 >90% - empiric antibiotics - lasix as needed - DVT prophylaxis
[2018-08-05] MEDS ORDERED: predniSONE 20 MG TABLET (UD) PO SCH (10:00)
[2018-08-05] MEDS: FOLIC ACID 1 MG TABLET (FP) PO SCH (10:05)
[2018-08-05] MEDS: DOCUSATE NA 100 MG/10 ML UNIT-DOSE CUPS PO SCH ×2 (10:05→22:09)
[2018-08-05] MEDS: ENOXAPARIN NA (PORCINE) 30 MG/0.3 ML DISP.SYRIN SQ SCH (10:05)
[2018-08-05] MEDS: ATENOLOL 25 MG TABLET (FP) PO SCH (10:05)
[2018-08-05] MEDS: ASPIRIN COATED 81 MG TABLET.EC PO SCH (10:05)
[2018-08-05] MEDS ORDERED: SODIUM CHLORIDE 1,000 ML IV SCH (11:15)
[2018-08-05 11:49] LABS: ANISOCYTOSIS 1+; MACROCYTOSIS 0; OVALOCYTE 1+; PLATELET ESTIMATE NORMAL
[2018-08-05] MEDS: SODIUM CHLORIDE 1 GM TABLET PO SCH ×2 (14:12→22:09)
[2018-08-05] MEDS: LEVALBUTEROL HCL 0.63 MG/3 ML VIAL.NEB. IH SCH ×2 (14:30→14:31)
--- NOTE | 2018-08-05 14:35 | PN ---
Progress Note (short form) - Note Progress Note: Renal follow up for Hyponatremia Pt seen and examined at the bedside awake and alert continues to have sob, feels uncomfortable denies any confusion, lethargy, weakness, N/V Appetite is very poor Vital Signs Temperature 97.8 F 08/05/18 06:00 Pulse Rate 80 08/05/18 06:00 Respiratory Rate 22 H 08/05/18 06:00 Blood Pressure 133/70 08/05/18 06:00 O2 Sat by Pulse Oximetry (%) 97 08/03/18 20:48 Intake & Output 08/02/18 08/03/18 08/04/18 08/05/18 23:59 23:59 23:59 23:59 Intake Total 1250 1030 790 Balance 1250 1030 790 Weight 55.792 kg 56.245 kg 55.656 kg NAD RRR, no M/R CTA, no rales soft NT/ND no LE edema CBC, BMP 08/05/18 06:05 08/05/18 06:05 Current Medications Arformoterol Tartrate (Brovana (Restricted To Pulmonology/Resp) -) 1 amp NEB RBID [facility] Last Admin: 08/05/18 07:20 Dose: 1 amp Aspirin (Ecotrin -) 81 mg PO DAILY [facility] Last Admin: 08/05/18 10:05 Dose: 81 mg Atenolol (Tenormin -) 25 mg PO DAILY [facility] Last Admin: 08/05/18 10:05 Dose: 25 mg Atorvastatin Calcium (Lipitor -) 10 mg PO HS [facility] Last Admin: 08/04/18 21:29 Dose: 10 mg Diltiazem HCl (Cardizem Cd -) 120 mg PO DAILY [facility] Last Admin: 08/05/18 10:05 Dose: 120 mg Docusate Sodium (Colace Liquid -) 100 mg PO BID [facility] Last Admin: 08/05/18 10:05 Dose: 100 mg Enoxaparin Sodium (Lovenox -) 30 mg SQ DAILY [facility] Last Admin: 08/05/18 10:05 Dose: 30 mg Folic Acid (Folic Acid -) 1 mg PO DAILY [facility] Last Admin: 08/05/18 10:05 Dose: 1 mg Ipratropium [place] (Atrovent 0.02% Nebulizer -) 1 amp NEB RQID [facility] Last Admin: 08/05/18 11:35 Dose: 1 amp Levalbuterol HCl (Xopenex) 0.63 mg IH RTID [facility] Last Admin: 08/05/18 14:31 Dose: Not Given Lorazepam (Ativan -) 1 mg PO DAILY PRN PRN Reason: ANXIETY Last Admin: 08/04/18 21:40 Dose: 1 mg Mometasone Furoate (Asmanex 220mcg -) 2 puff IH HS [facility] Last Admin: 08/04/18 21:29 Dose: 2 puff Montelukast Sodium (Singulair -) 10 mg PO HS [facility] Last Admin: 08/04/18 21:29 Dose: 10 mg Polyethylene Glycol (Miralax (For Daily Use) -) 17 gm PO DAILY PRN PRN Reason: CONSTIPATION Prednisone (Deltasone -) 40 mg PO DAILY [facility] Senna (Senna -) 2 tab PO HS PRN PRN Reason: CONSTIPATION Last Admin: 08/05/18 02:19 Dose: 2 tab Sodium Chloride (Sodium Chloride Tablet -) 1 gm PO BID [facility] Last Admin: 08/05/18 14:12 Dose: 1 gm 88 year old woman with hx of COPD who presented with sob/cough and developed hyponatremia during the course of the hospitalization. Pt denies any hx of hyponatremia. #Hyponatremia (from HF vs. SIADH from lung pathology) #COPD exacerbation #diastolic HF Urine studies show low Urinary Na which is indicative of volume depletion or hypovolemic hyponatremia. Pt was given 500cc of NS last night but did not show improvement in serum Na. This morning the Na went up without intervention. Will start salt tabs 1g BID as pt has very poor solute intake as this time continue fluid restriction of ~1L for now continue steroids as per pulmonary Trend Na Q12h no indication for hypertonic saline Benja Ng DO
--- NOTE | 2018-08-05 17:21 | PN ---
Teaching Attending Note Name of Resident: Gopal Kellygabriela ATTENDING PHYSICIAN STATEMENT I saw and evaluated the patient. I reviewed the resident's note and discussed the case with the resident. I agree with the resident's findings and plan as documented. SUBJECTIVE: Dyspnea and non-productive cough improving. No fever. OBJECTIVE: Afebrile, Hemodynamically Stable. AAO x 2. SpO2 97% on 2L via NC. Last Vital Signs Temp Pulse Resp BP Pulse Ox 98.5 F 77 20 117/62 97 08/05/18 14:10 08/05/18 14:10 08/05/18 14:10 08/05/18 14:10 08/03/18 20:48 Heart - S1, S2, SM Lungs - bibasal crackles. Abdomen - Soft, non-tender. Bowel Sounds normal. Extremities - edema+. No calf tenderness. Neuro - AAO x 2. Tone/Power normal all 4 extremities. Laboratory Results - last 24 hr 08/04/18 08/04/18 08/04/18 17:02 17:02 17:02 WBC RBC Hgb Hct MCV MCH MCHC RDW Plt Count MPV Absolute Neuts (auto) Neutrophils % Neutrophils % (Manual) Band Neutrophils % Lymphocytes % Lymphocytes % (Manual) Monocytes % Monocytes % (Manual) Eosinophils % Eosinophils % (Manual) Basophils % Basophils % (Manual) Myelocytes % (Man) Promyelocytes % (Man) Blast Cells % (Manual) Nucleated RBC % Metamyelocytes Hypochromia Platelet Estimate Polychromasia Poikilocytosis Anisocytosis Microcytosis Macrocytosis Ovalocytes Acanthocytes (Spur) Sodium Potassium Chloride Carbon Dioxide Anion Gap BUN Creatinine Creat Clearance w eGFR Random Glucose Calcium Phosphorus Magnesium Urine Osmolality 570 Ur Random Sodium < 18 L Urine Creatinine Influenza A (Rapid) Negative Influenza B (Rapid) Negative 08/04/18 08/04/18 08/05/18 17:02 18:15 01:00 WBC RBC Hgb Hct MCV MCH MCHC RDW Plt Count MPV Absolute Neuts (auto) Neutrophils % Neutrophils % (Manual) Band Neutrophils % Lymphocytes % Lymphocytes % (Manual) Monocytes % Monocytes % (Manual) Eosinophils % Eosinophils % (Manual) Basophils % Basophils % (Manual) Myelocytes % (Man) Promyelocytes % (Man) Blast Cells % (Manual) Nucleated RBC % Metamyelocytes Hypochromia Platelet Estimate Polychromasia Poikilocytosis Anisocytosis Microcytosis Macrocytosis Ovalocytes Acanthocytes (Spur) Sodium 124 L 123 L Potassium Chloride Carbon Dioxide Anion Gap BUN Creatinine Creat Clearance w eGFR Random Glucose Calcium Phosphorus Magnesium Urine Osmolality Ur Random Sodium Urine Creatinine 50.0 Influenza A (Rapid) Influenza B (Rapid) 08/05/18 08/05/18 06:05 06:05 WBC 12.1 H RBC 3.53 L Hgb 11.0 Hct 31.6 L MCV 89.4 MCH 31.0 MCHC 34.6 RDW 14.4 Plt Count 216 MPV 7.2 L Absolute Neuts (auto) 11.5 H Neutrophils % 95.0 H Neutrophils % (Manual) 86.9 H Band Neutrophils % 2.0 Lymphocytes % 2.0 L D Lymphocytes % (Manual) 4.1 L Monocytes % 2.7 L Monocytes % (Manual) 2 L D Eosinophils % 0.1 D Eosinophils % (Manual) 0.0 Basophils % 0.2 Basophils % (Manual) 0.0 Myelocytes % (Man) 4 H Promyelocytes % (Man) 0 Blast Cells % (Manual) 0 Nucleated RBC % 0 Metamyelocytes 0 D Hypochromia 0 Platelet Estimate Normal Polychromasia 0 Poikilocytosis 1+ Anisocytosis 1+ Microcytosis 1+ Macrocytosis 0 Ovalocytes 1+ Acanthocytes (Spur) 1+ Sodium 128 L Potassium 4.1 Chloride 87 L Carbon Dioxide 36 H Anion Gap 5 L BUN 28 H Creatinine 0.7 Creat Clearance w eGFR 79.15 Random Glucose 203 H Calcium 7.7 L Phosphorus 2.6 Magnesium 2.2 Urine Osmolality Ur Random Sodium Urine Creatinine Influenza A (Rapid) Influenza B (Rapid) Current Medications Generic Name Dose Route Start Last Admin Trade Name Freq PRN Reason Stop Dose Admin Arformoterol Tartrate 1 amp 08/04/18 22:45 08/05/18 07:20 Brovana (Restricted To Pulmonology/Resp) - NEB 1 amp RBID AMAURI Administration Aspirin 81 mg 08/05/18 10:00 08/05/18 10:05 Ecotrin - PO 81 mg DAILY AMAURI Administration Atenolol 25 mg 08/03/18 10:00 08/05/18 10:05 Tenormin - PO 25 mg DAILY AMAURI Administration Atorvastatin Calcium 10 mg 08/02/18 22:00 08/04/18 21:29 Lipitor - PO 10 mg HS AMAURI Administration Diltiazem HCl 120 mg 08/03/18 10:00 08/05/18 10:05 Cardizem Cd - PO 120 mg DAILY AMAURI Administration Docusate Sodium 100 mg 08/04/18 22:00 08/05/18 10:05 Colace Liquid - PO 100 mg BID AMAURI Administration Enoxaparin Sodium 30 mg 08/02/18 10:00 08/05/18 10:05 Lovenox - SQ 30 mg DAILY AMAURI Administration Folic Acid 1 mg 08/04/18 18:44 08/05/18 10:05 Folic Acid - PO 1 mg DAILY AMAURI Administration Ipratropium [place] 1 amp 08/01/18 20:00 08/05/18 15:00 Atrovent 0.02% Nebulizer - NEB 1 amp RQID AMAURI Administration Levalbuterol HCl 0.63 mg 08/02/18 14:00 08/05/18 14:31 Xopenex IH Not Given RTID AMAURI Lorazepam 1 mg 08/04/18 19:27 08/04/18 21:40 Ativan - PO 1 mg DAILY PRN Administration ANXIETY Mometasone Furoate 2 puff 08/04/18 22:00 08/04/18 21:29 Asmanex 220mcg - IH 2 puff HS AMAURI Administration Montelukast Sodium 10 mg 08/04/18 22:00 08/04/18 21:29 Singulair - PO 10 mg HS AMAURI Administration Polyethylene Glycol 17 gm 08/04/18 18:06 Miralax (For Daily Use) - PO DAILY PRN CONSTIPATION Prednisone 40 mg 08/06/18 10:00 Deltasone - PO DAILY AMAURI Senna 2 tab 08/04/18 18:06 08/05/18 02:19 Senna - PO 2 tab HS PRN Administration CONSTIPATION Sodium Chloride 1 gm 08/05/18 11:45 08/05/18 14:12 Sodium Chloride Tablet - PO 1 gm BID AMAURI Administration ASSESSMENT AND PLAN: 88 year old female with history of Dementia, HTN, HLD, CRF sec to COPD/Asthma, admitted with increasing SOB and non-productive cough. 1. Acute on Chronic Hypoxic respiratory failure - secondary to Acute Exacerbation COPD/Asthma and Acute diastolic CHF. Echo - normal EF, grade 1 diastolic dysfunction. Received IV Lasix 40mg x 2 days Continue Prednisone, Xopenex INH and Ipratropium Nebs. Completed 5 day course of Levofloxacin. CXR - bibasal atelectasis - incentive spirometry requested. Pulm following. PT requested, advised to sit up in chair. Continue Eduar Tellez Brovana 2. Bacteriuria Urine Cx pos for ESBL Afebrile, Hemodynamically Stable. No need for treatment as per ID Afebrile, Hemodynamically Stable. 3. Hyponatremia - worsened s/p Lasix IV diuresis - no improvement after 500ml bolus. Etiology unclear - Nephrology recommends Fluid Restriction and salt tabs. 4. HTN - Continue Cardizem, Atenolol 5. HLD - Continue Statin. 6. Possible Dementia - likely diagnosis, AAO x 2. No evidence of acute confusional state. No family available at bedside for collateral history. 7. Constipation - resolved. BM yesterday evening. DVT Px - Lovenox SQ GI Px - PPI Dispo - PT eval for return home as patient declines SNF.
[2018-08-05] MEDS: PANTOPRAZOLE 40 MG TABLET (FP) PO SCH (18:24)
[2018-08-05] MEDS: MONTELUKAST NA 10 MG TABLET PO SCH (22:09)
[2018-08-05] MEDS: ATORVASTATIN CA 10 MG TABLET (FP) PO SCH (22:09)
[2018-08-05] MEDS: MOMETASONE FUROATE 220 MCG/IH INHALER IH SCH (22:43)
[2018-08-06] MEDS: IPRATROPIUM BR 0.02% 0.5 MG/2.5 ML VIAL.NEB. NEB SCH ×4 (07:35→20:38)
[2018-08-06] MEDS: LEVALBUTEROL HCL 0.63 MG/3 ML VIAL.NEB. IH SCH ×3 (07:35→20:41)
[2018-08-06] MEDS: ARFORMOTEROL TARTRATE 15 MCG/2 ML VIAL NEB SCH ×2 (07:35→20:39)
[2018-08-06 08:35] LABS: ALBUMIN 2.3 g/dl (3.4-5.0); ALK PHOS 63 U/L (45-117); ANION GAP 6 MMOL/L (8-16); BILIRUBIN,TOTAL 0.6 mg/dL (0.2-1); BLOOD UREA NITROGEN 21 mg/dL (7-18); CALCIUM 7.8 mg/dL (8.5-10.1); CHLORIDE 93 mmol/L (98-107); CO2 33 mmol/L (21-32); CREATININE 0.6 mg/dL (0.55-1.3); GLUCOSE,RANDOM 144 mg/dL (74-106); POTASSIUM 4.1 mmol/L (3.5-5.1); SGOT/AST 21 U/L (15-37); SGPT/ALT 38 U/L (13-61); SODIUM 132 mmol/L (136-145); TOT PROT 4.5 g/dl (6.4-8.2)
[2018-08-06] MEDS ORDERED: PT OWN MED DRAWER 7, Y5N ONE ×2 (09:51→13:28)
--- NOTE | 2018-08-06 10:11 | DS ---
Physical Exam: SUBJECTIVE: She admits improvement with her shortness of breath. Denies subjective fevers, chills, cough, shortness of breath, chest pain, palpitations , abdominal pain, nausea, vomiting. OBJECTIVE: Vital Signs Period Temp Pulse Resp BP Sys/Puga Pulse Ox Last 24 Hr 97.5 F-98.5 F 72-84 18-20 117-129/51-62 96 PHYSICAL EXAM GENERAL: The patient is awake, alert, and oriented, in no acute distress. HEAD: Normocephalic, atraumatic. EYES: PERRL, extraocular movements intact, sclera anicteric, conjunctiva clear. ENT: Oropharynx clear without exudates, dry mucous membranes. NECK: Trachea midline, supple without lymphadenopathy. LUNGS: Improving air entry bilaterally. Faint wheezing, and rhonchi auscultated bilaterally. HEART: Regular rate and rhythm, S1, S2 auscultated without murmur, rubs, gallops. ABDOMEN: Soft, nondistended, nontender to light and deep palpation X4 quadrants. No guarding, no rebound tenderness. Normoactive bowel sounds x4 quadrants. EXTREMITIES: 2+ radial, dorsalis pedis pulses bilaterally. Warm, well-perfused. 1+ bilateral lower extremity edema. NEUROLOGICAL: Cranial nerves II through XII grossly intact. PSYCH: Normal mood, normal affect upon my encounter. SKIN: Warm, dry. LABS Laboratory Results - last 24 hr 08/05/18 08/05/18 08/06/18 06:05 18:40 06:30 WBC Cancelled Corrected WBC (auto) Cancelled RBC Cancelled Hgb Cancelled Hct Cancelled MCV Cancelled MCH Cancelled MCHC Cancelled RDW Cancelled Plt Count Cancelled MPV Cancelled Neutrophils % (Manual) 86.9 H Band Neutrophils % 2.0 Lymphocytes % (Manual) 4.1 L Monocytes % (Manual) 2 L D Eosinophils % (Manual) 0.0 Basophils % (Manual) 0.0 Myelocytes % (Man) 4 H Promyelocytes % (Man) 0 Blast Cells % (Manual) 0 Metamyelocytes 0 D Manual Slide Review Cancelled Hypochromia 0 Platelet Estimate Normal Platelet Comment Cancelled Polychromasia 0 Poikilocytosis 1+ Anisocytosis 1+ Microcytosis 1+ Macrocytosis 0 Ovalocytes 1+ Acanthocytes (Spur) 1+ Sodium 129 L Potassium Chloride Carbon Dioxide Anion Gap BUN Creatinine Creat Clearance w eGFR Random Glucose Calcium Total Bilirubin AST ALT Alkaline Phosphatase Total Protein Albumin 08/06/18 06:30 WBC Corrected WBC (auto) RBC Hgb Hct MCV MCH MCHC RDW Plt Count MPV Neutrophils % (Manual) Band Neutrophils % Lymphocytes % (Manual) Monocytes % (Manual) Eosinophils % (Manual) Basophils % (Manual) Myelocytes % (Man) Promyelocytes % (Man) Blast Cells % (Manual) Metamyelocytes Manual Slide Review Hypochromia Platelet Estimate Platelet Comment Polychromasia Poikilocytosis Anisocytosis Microcytosis Macrocytosis Ovalocytes Acanthocytes (Spur) Sodium 132 L Potassium 4.1 Chloride 93 L Carbon Dioxide 33 H Anion Gap 6 L BUN 21 H Creatinine 0.6 Creat Clearance w eGFR 94.56 Random Glucose 144 H Calcium 7.8 L Total Bilirubin 0.6 AST 21 ALT 38 Alkaline Phosphatase 63 Total Protein 4.5 L Albumin 2.3 L HOSPITAL COURSE: Date of Admission:08/01/18 Date of Discharge: 08/06/18 Patient is an 88 year old female with history of asthma, with numerous admissions to [facility] for asthma exacerbation, on home oxygen, no prior history of intubations, presents with complaint of shortness of breath. Influenza A/B negative. Patient was evaluated by pulmonology. Started on IV methylprednisone, levalbuterol, and ipratropium. She completed 5 days of empiric Levofloxacin. Urine cultures grew ESBL E. coli. Patient was evaluated by infectious disease physician, who discussed no need to treat the E. coli. Patient became hyponatremic to 123 during admission and was evaluated by nephrology who discussed hyponatremia likely secondary to poor oral intake. She was placed on fluid restriction, and salt tablets. Hyponatremia improved with intervention. Hypertension managed with cardizem and atenolol. Patient endorsed improvement with her breathing and repeat chest radiograph showed no new infiltrates or congestive changes compared to prior studies. Case was discussed with pulmonology, who agreed with discharge to care home facility. Patient discharged with prednisone taper, and salt tablets. Follow up with pulmonology, nephrology, and primary care physician. Minutes to complete discharge: 35 Discharge Summary Reason For Visit: CONGESTIVE HEART FAILURE, RESPIRATORY DISTRESS Current Active Problems Asymptomatic bacteriuria (Acute) CHF (congestive heart failure) (Acute) COPD with exacerbation (Acute) Constipation (Acute) ESBL E. coli carrier (Acute) Condition: Stable - Instructions Diet, Activity, Other Instructions: You were admitted to the hospital due to shortness of breath. You were evaluated by the planetarium sky show technician, and treated with steroids, and breathing treatments to help improve your breathing. You are being discharged home. Continue taking your home medications as directed. Continue taking Prednisone in taper as directed below: 40mg daily for the next two days (08/06, 08/07) Then take Prednisone 30mg daily for the next three days (08/08, 08/09, 08/10) Following, take Prednisone 20mg daily for the following three days (08/11, 08/12 , 08/13) Then, take Prednisone 10mg daily for the next three days (08/14, 08/15, 08/16) Finally, take Prednisone 5mg daily for the last three days (08/17, 08/18, 08/19) You will also begin taking Salt tablets (NaCl) 1 tablet daily. Discuss this new medication with Dr. Ng at your follow up appointment. Follow up with your primary care physician within two- three days of discharge. Follow up with Dental Hygiene Professor (Dr. Guzman) within one week of discharge. Follow up with Drill Bit Sharpener (Dr. Ng) within one week of discharge. Return to the nearest Emergency Department if you experience worsening symptoms , headaches, fall, loss of consciousness, dizziness, fevers, chills, cough, shortness of breath, chest pain, palpitations, abdominal pain, nausea, vomiting. Referrals: [facility] – [place], [place] [facility] [place] [Provider Group] Dexter Guzman MD, MD [Staff Physician] - 1 Week Benja Ng MD [Staff Physician] - Disposition: [facility] - Home Medications Comprehensive Discharge Medication List: Ambulatory Orders Atenolol [Tenormin -] 25 mg PO DAILY 08/02/18 Atorvastatin Ca [Lipitor] 10 mg PO HS 08/02/18 Diltiazem Cd [Cardizem Cd -] 120 mg PO DAILY 08/02/18 Arformoterol Tartrate [Brovana] 2 ml IH BID 08/03/18 Aspirin Coated [Ecotrin -] 81 mg PO DAILY 08/03/18 Colesevelam HCl 625 mg PO BID 08/03/18 Ferrous Sulfate 325 mg PO ONCE 08/03/18 Fluticasone Propionate [Flovent Diskus] 100 mcg IH BID 08/03/18 Folic Acid 1 mg PO ONCE 08/03/18 Ipratropium 0.02% Nebulizer 2.5 ml IH QID 08/03/18 LORazepam [Ativan] 1 mg PO PRN 08/03/18 Montelukast Sodium [Singulair] 10 mg PO ONCE 08/03/18 Pantoprazole Sodium 40 mg PO BID 08/03/18 Prednisone See Taper PO ASDIR #17 tablet 08/06/18 Sodium Chloride Tablet - 1 gm PO BID #14 tablet 08/06/18 This patient is new to me today: No Emergency Visit: Yes ED Registration Date: 08/01/18 Care time: The patient presented to the Emergency Department on the above date and was hospitalized for further evaluation of their emergent condition. Critical Care patient: No - Discharge Referral Referred to [facility] No
[2018-08-06] MEDS: ENOXAPARIN NA (PORCINE) 30 MG/0.3 ML DISP.SYRIN SQ SCH (10:20)
[2018-08-06] MEDS: ASPIRIN COATED 81 MG TABLET.EC PO SCH (10:21)
[2018-08-06] MEDS: ATENOLOL 25 MG TABLET (FP) PO SCH (10:21)
[2018-08-06] MEDS: DOCUSATE NA 100 MG/10 ML UNIT-DOSE CUPS PO SCH ×2 (10:21→21:56)
[2018-08-06] MEDS: predniSONE 20 MG TABLET (UD) PO SCH (10:21)
[2018-08-06] MEDS: PANTOPRAZOLE 40 MG TABLET (FP) PO SCH (10:22)
[2018-08-06] MEDS: SODIUM CHLORIDE 1 GM TABLET PO SCH (10:22)
[2018-08-06] MEDS: FOLIC ACID 1 MG TABLET (FP) PO SCH (10:22)
[2018-08-06 10:39] LABS: HEMATOCRIT 30.8 % (32.4-45.2); HEMOGLOBIN 10.8 GM/dL (10.7-15.3); RBC 3.46 M/mm3 (3.60-5.2)
[2018-08-06 10:40] LABS: MCH 31.2 pg (25.7-33.7); MEAN PLT VOLUME 6.9 fl (7.5-11.1); PLATELET COUNT 192 K/MM3 (134-434); RDW 14.8 % (11.6-15.6)
--- NOTE | 2018-08-06 11:24 | PN ---
Progress Note (short form) - Note Progress Note: PULMONARY MOANING IN BED REMAINS SOB ON O2 CONGESTED NONPRODUCTIVE COUGH Gen: anxious, mildly tachypneic Heart: RRR Lung: scattered rhonchi, wheezes Abd: soft, nontender Ext: + edema labs/meds/notes/images reviewed A/P Acute COPD Exacerbation Chronic Hypoxic Respiratory Failure Hyponatremia LV Diastolic Dysfunction - steroids/nebs/chest PT - repeat CXR - O2 to keep SpO2 >90% - empiric antibiotics - lasix as needed - DVT prophylaxis - Patient agrees to SNF post discharge - I do not believe the patient is ready at this time Elva SAHNI MD
--- NOTE | 2018-08-06 13:04 | PN ---
Progress Note (short form) - Note Progress Note: Renal follow up for Hyponatremia Pt seen and examined at the bedside awake and alert continues to feel weak feels hungry today sob persists Vital Signs Temperature 97.5 F L 08/06/18 06:00 Pulse Rate 72 08/06/18 06:00 Respiratory Rate 20 08/06/18 06:00 Blood Pressure 129/61 08/06/18 06:00 O2 Sat by Pulse Oximetry (%) 96 08/05/18 21:00 Intake & Output 08/03/18 08/04/18 08/05/18 08/06/18 23:59 23:59 23:59 23:59 Intake Total 1030 790 250 Balance 1030 790 250 Weight 55.792 kg 56.245 kg 55.656 kg 55.429 kg NAD RRR, no M/R CTA, no rales soft NT/ND no LE edema CBC, BMP 08/06/18 10:00 08/06/18 06:30 Current Medications Arformoterol Tartrate (Brovana (Restricted To Pulmonology/Resp) -) 1 amp NEB RBID [facility] Last Admin: 08/06/18 07:35 Dose: 1 amp Aspirin (Ecotrin -) 81 mg PO DAILY [facility] Last Admin: 08/06/18 10:21 Dose: 81 mg Atenolol (Tenormin -) 25 mg PO DAILY AMAURI Last Admin: 08/06/18 10:21 Dose: 25 mg Atorvastatin Calcium (Lipitor -) 10 mg PO HS [facility] Last Admin: 08/05/18 22:09 Dose: 10 mg Diltiazem HCl (Cardizem Cd -) 120 mg PO DAILY AMAURI Last Admin: 08/06/18 10:22 Dose: 120 mg Docusate Sodium (Colace Liquid -) 100 mg PO BID AMAURI Last Admin: 08/06/18 10:21 Dose: 100 mg Enoxaparin Sodium (Lovenox -) 30 mg SQ DAILY [facility] Last Admin: 08/06/18 10:20 Dose: 30 mg Folic Acid (Folic Acid -) 1 mg PO DAILY [facility] Last Admin: 08/06/18 10:22 Dose: 1 mg Ipratropium [place] (Atrovent 0.02% Nebulizer -) 1 amp NEB RQID [facility] Last Admin: 08/06/18 07:35 Dose: 1 amp Levalbuterol HCl (Xopenex) 0.63 mg IH RTID [facility] Last Admin: 08/06/18 07:35 Dose: Not Given Lorazepam (Ativan -) 1 mg PO DAILY PRN PRN Reason: ANXIETY Last Admin: 08/04/18 21:40 Dose: 1 mg Mometasone Furoate (Asmanex 220mcg -) 2 puff IH HS [facility] Last Admin: 08/05/18 22:43 Dose: 2 puff Montelukast Sodium (Singulair -) 10 mg PO HS [facility] Last Admin: 08/05/18 22:09 Dose: 10 mg Pantoprazole Sodium (Protonix -) 40 mg PO DAILY [facility] Last Admin: 08/06/18 10:22 Dose: 40 mg Polyethylene Glycol (Miralax (For Daily Use) -) 17 gm PO DAILY PRN PRN Reason: CONSTIPATION Prednisone (Deltasone -) 40 mg PO DAILY [facility] Last Admin: 08/06/18 10:21 Dose: 40 mg Senna (Senna -) 2 tab PO HS PRN PRN Reason: CONSTIPATION Last Admin: 08/05/18 02:19 Dose: 2 tab Sodium Chloride (Sodium Chloride Tablet -) 1 gm PO DAILY [facility] 88 year old woman with hx of COPD who presented with sob/cough and developed hyponatremia during the course of the hospitalization. Pt denies any hx of hyponatremia. #Hyponatremia from hypovolemia (low urine Na levels) in setting of poor solute intake. #COPD exacerbation #diastolic HF Serum Na improving on free water restriction and salt tabs given concerns of congestion will decrease salt tab to 1g daily if CXR shows effusions can hold it once oral intake improves she can be off salt tabs completely Benja Ng DO
--- NOTE | 2018-08-06 19:07 | PN ---
Teaching Attending Note Name of Resident: Gopal Phillips ATTENDING PHYSICIAN STATEMENT I saw and evaluated the patient. I reviewed the resident's note and discussed the case with the resident. I agree with the resident's findings and plan as documented. SUBJECTIVE: Dyspnea and non-productive cough improving. No fever. OBJECTIVE: Afebrile, Hemodynamically Stable. AAO x 2. SpO2 97% on 2L via NC. Last Vital Signs Temp Pulse Resp BP Pulse Ox 99 F 71 18 117/56 L 98 08/06/18 16:30 08/06/18 16:30 08/06/18 16:30 08/06/18 16:30 08/06/18 14:55 Heart - S1, S2, SM Lungs - few bibasal crackles. Abdomen - Soft, non-tender. Bowel Sounds normal. Extremities - edema+. No calf tenderness. Neuro - AAO x 2. Tone/Power normal all 4 extremities. Laboratory Results - last 24 hr 08/05/18 08/06/18 08/06/18 18:40 06:30 06:30 WBC Cancelled Corrected WBC (auto) Cancelled RBC Cancelled Hgb Cancelled Hct Cancelled MCV Cancelled MCH Cancelled MCHC Cancelled RDW Cancelled Plt Count Cancelled MPV Cancelled Manual Slide Review Cancelled Platelet Comment Cancelled Sodium 129 L 132 L Potassium 4.1 Chloride 93 L Carbon Dioxide 33 H Anion Gap 6 L BUN 21 H Creatinine 0.6 Creat Clearance w eGFR 94.56 Random Glucose 144 H Calcium 7.8 L Total Bilirubin 0.6 AST 21 ALT 38 Alkaline Phosphatase 63 Total Protein 4.5 L Albumin 2.3 L 08/06/18 10:00 WBC 11.0 H Corrected WBC (auto) RBC 3.46 L Hgb 10.8 Hct 30.8 L MCV 89.0 MCH 31.2 MCHC 35.0 RDW 14.8 Plt Count 192 MPV 6.9 L Manual Slide Review Platelet Comment Sodium Potassium Chloride Carbon Dioxide Anion Gap BUN Creatinine Creat Clearance w eGFR Random Glucose Calcium Total Bilirubin AST ALT Alkaline Phosphatase Total Protein Albumin Current Medications Generic Name Dose Route Start Last Admin Trade Name Freq PRN Reason Stop Dose Admin Arformoterol Tartrate 1 amp 08/04/18 22:45 08/06/18 07:35 Brovana (Restricted To Pulmonology/Resp) - NEB 1 amp RBID AMAURI Administration Aspirin 81 mg 08/05/18 10:00 08/06/18 10:21 Ecotrin - PO 81 mg DAILY AMAURI Administration Atenolol 25 mg 08/03/18 10:00 08/06/18 10:21 Tenormin - PO 25 mg DAILY AMAURI Administration Atorvastatin Calcium 10 mg 08/02/18 22:00 08/05/18 22:09 Lipitor - PO 10 mg HS AMAURI Administration Diltiazem HCl 120 mg 08/03/18 10:00 08/06/18 10:22 Cardizem Cd - PO 120 mg DAILY AMAURI Administration Docusate Sodium 100 mg 08/04/18 22:00 08/06/18 10:21 Colace Liquid - PO 100 mg BID AMAURI Administration Enoxaparin Sodium 30 mg 08/02/18 10:00 08/06/18 10:20 Lovenox - SQ 30 mg DAILY AMAURI Administration Folic Acid 1 mg 08/04/18 18:44 08/06/18 10:22 Folic Acid - PO 1 mg DAILY AMAURI Administration Ipratropium [place] 1 amp 08/01/18 20:00 08/06/18 15:45 Atrovent 0.02% Nebulizer - NEB 1 amp RQID AMAURI Administration Levalbuterol HCl 0.63 mg 08/02/18 14:00 08/06/18 15:45 Xopenex IH 0.63 mg RTID AMAURI Administration Lorazepam 1 mg 08/04/18 19:27 08/04/18 21:40 Ativan - PO 1 mg DAILY PRN Administration ANXIETY Mometasone Furoate 2 puff 08/04/18 22:00 08/05/18 22:43 Asmanex 220mcg - IH 2 puff HS AMAURI Administration Montelukast Sodium 10 mg 08/04/18 22:00 08/05/18 22:09 Singulair - PO 10 mg HS AMAURI Administration Pantoprazole Sodium 40 mg 08/05/18 17:30 08/06/18 10:22 Protonix - PO 40 mg DAILY AMAURI Administration Polyethylene Glycol 17 gm 08/04/18 18:06 Miralax (For Daily Use) - PO DAILY PRN CONSTIPATION Prednisone 40 mg 08/06/18 10:00 08/06/18 10:21 Deltasone - PO 40 mg DAILY AMAURI Administration Senna 2 tab 08/04/18 18:06 08/05/18 02:19 Senna - PO 2 tab HS PRN Administration CONSTIPATION Sodium Chloride 1 gm 08/07/18 10:00 Sodium Chloride Tablet - PO DAILY AMAURI ASSESSMENT AND PLAN: 88 year old female with history of Dementia, HTN, HLD, CRF sec to COPD/Asthma, admitted with increasing SOB and non-productive cough. 1. Acute on Chronic Hypoxic respiratory failure - secondary to Acute Exacerbation COPD/Asthma and Acute Diastolic CHF. Echo - normal EF, grade 1 diastolic dysfunction. Received IV Lasix 40mg x 2 days, no further lasix required. Continue tapering course of Prednisone. Completed 5 day course of Levofloxacin. Repeat CXR - clear Medically stable for discharge. Stable respiratory status. Continue Asmanex, Singulair, Brovana 2. Bacteriuria Urine Cx pos for ESBL Afebrile, Hemodynamically Stable. No need for treatment as per ID Afebrile, Hemodynamically Stable. 3. Hyponatremia - worsened s/p Lasix IV diuresis - no improvement after 500ml bolus. Etiology unclear, likely poor oral intake - Nephrology recommends salt tabs on discharge with nephrology follow up. Discussed with Dr. Ng. Na now up to 132. 4. HTN - Continue Cardizem, Atenolol 5. HLD - Continue Statin. 6. Possible Dementia - likely diagnosis, AAO x 2. No evidence of acute confusional state. Collateral history from son confirms slow decline in memory/ cognition. 7. Constipation - resolved. Dispo - Agrees for transfer to SNF. Medically stable.
[2018-08-06] MEDS: MONTELUKAST NA 10 MG TABLET PO SCH (21:56)
[2018-08-06] MEDS: ATORVASTATIN CA 10 MG TABLET (FP) PO SCH (21:56)
[2018-08-06] MEDS: MOMETASONE FUROATE 220 MCG/IH INHALER IH SCH (21:57)
[2018-08-07] MEDS: ARFORMOTEROL TARTRATE 15 MCG/2 ML VIAL NEB SCH (07:55)
[2018-08-07] MEDS: IPRATROPIUM BR 0.02% 0.5 MG/2.5 ML VIAL.NEB. NEB SCH (07:55)
[2018-08-07 08:32] LABS: ANION GAP 5 MMOL/L (8-16); BLOOD UREA NITROGEN 16 mg/dL (7-18); CALCIUM 8.2 mg/dL (8.5-10.1); CHLORIDE 91 mmol/L (98-107); CO2 34 mmol/L (21-32); CREATININE 0.5 mg/dL (0.55-1.3); GLUCOSE,RANDOM 93 mg/dL (74-106); POTASSIUM 4.1 mmol/L (3.5-5.1); SODIUM 131 mmol/L (136-145)
[2018-08-07] MEDS ORDERED: PT OWN MED DRAWER 7, Y5N ONE (09:10)
[2018-08-07] MEDS: ENOXAPARIN NA (PORCINE) 30 MG/0.3 ML DISP.SYRIN SQ SCH (09:18)
[2018-08-07] MEDS: ASPIRIN COATED 81 MG TABLET.EC PO SCH (09:19)
[2018-08-07] MEDS: PANTOPRAZOLE 40 MG TABLET (FP) PO SCH (09:19)
[2018-08-07] MEDS: DOCUSATE NA 100 MG/10 ML UNIT-DOSE CUPS PO SCH (09:19)
[2018-08-07] MEDS: predniSONE 20 MG TABLET (UD) PO SCH (09:19)
[2018-08-07] MEDS: FOLIC ACID 1 MG TABLET (FP) PO SCH (09:20)
[2018-08-07] MEDS: ATENOLOL 25 MG TABLET (FP) PO SCH (09:20)
--- NOTE | 2018-08-07 09:25 | PN ---
Physical Exam: SUBJECTIVE: Patient seen and examined. Chest Xray within normal, pt set up for SNF late yesterday so did not leave. Transportation is arranged. No new C/o this am. Breathing improving OBJECTIVE: Vital Signs Period Temp Pulse Resp BP Sys/Puga Pulse Ox Last 24 Hr 97.8 F-99 F 71-86 18- 113-149/53-70 97-98 Vital Signs Temp 98.4 F 08/07/18 10:00 Pulse 97 H 08/07/18 10:00 Resp 18 08/07/18 10:00 BP 156/76 08/07/18 10:00 Pulse Ox 98 08/07/18 09:00 Intake & Output 08/06/18 08/07/18 08/07/18 23:59 11:59 23:59 Intake Total 375 240 Balance 375 240 Weight 52.934 kg Intake: IV 0 SALINE LOCK 0 IVPB 0 Oral 375 240 Other: Voiding Method Incontinent Bedside Commode # Unmeasured Voids Void 1 Bowel Movement Yes No # Bowel Movements 2 Weight Measurement Method Built in [facility] GENERAL: The patient is somnolent but arousable ENT: moist mucous membranes. NC NECK: supple. LUNGS: Faint scattered wheezes, no crackles HEART: Regular rate and rhythm, S1, S2 ABDOMEN: Soft, nontender, nondistended, normoactive bowel sound EXTREMITIES: 2+ pulses, warm, well-perfused, non pitting edema. NEUROLOGICAL: Cranial nerves II through XII grossly intact. Normal speech, gait not observed. CBC, BMP 08/06/18 10:00 08/07/18 06:30 Laboratory Results - last 24 hr 08/06/18 08/07/18 10:00 06:30 WBC 11.0 H RBC 3.46 L Hgb 10.8 Hct 30.8 L MCV 89.0 MCH 31.2 MCHC 35.0 RDW 14.8 Plt Count 192 MPV 6.9 L Sodium 131 L Potassium 4.1 Chloride 91 L Carbon Dioxide 34 H Anion Gap 5 L BUN 16 Creatinine 0.5 L Creat Clearance w eGFR 116.71 Random Glucose 93 Calcium 8.2 L Current Medications Generic Name Dose Route Start Last Admin Trade Name Freq PRN Reason Stop Dose Admin Arformoterol Tartrate 1 amp 08/04/18 22:45 08/06/18 07:35 Brovana (Restricted To Pulmonology/Resp) - NEB 1 amp RBID AMAURI Administration Aspirin 81 mg 08/05/18 10:00 08/06/18 10:21 Ecotrin - PO 81 mg DAILY AMAURI Administration Atenolol 25 mg 08/03/18 10:00 08/06/18 10:21 Tenormin - PO 25 mg DAILY AMAURI Administration Atorvastatin Calcium 10 mg 08/02/18 22:00 08/05/18 22:09 Lipitor - PO 10 mg HS AMAURI Administration Diltiazem HCl 120 mg 08/03/18 10:00 08/06/18 10:22 Cardizem Cd - PO 120 mg DAILY AMAURI Administration Docusate Sodium 100 mg 08/04/18 22:00 08/06/18 10:21 Colace Liquid - PO 100 mg BID AMAURI Administration Enoxaparin Sodium 30 mg 08/02/18 10:00 08/06/18 10:20 Lovenox - SQ 30 mg DAILY AMAURI Administration Folic Acid 1 mg 08/04/18 18:44 08/06/18 10:22 Folic Acid - PO 1 mg DAILY AMAURI Administration Ipratropium [place] 1 amp 08/01/18 20:00 08/06/18 15:45 Atrovent 0.02% Nebulizer - NEB 1 amp RQID AMAURI Administration Levalbuterol HCl 0.63 mg 08/02/18 14:00 08/06/18 15:45 Xopenex IH 0.63 mg RTID AMAURI Administration Lorazepam 1 mg 08/04/18 19:27 08/04/18 21:40 Ativan - PO 1 mg DAILY PRN Administration ANXIETY Mometasone Furoate 2 puff 08/04/18 22:00 08/05/18 22:43 Asmanex 220mcg - IH 2 puff HS AMAURI Administration Montelukast Sodium 10 mg 08/04/18 22:00 08/05/18 22:09 Singulair - PO 10 mg HS AMAURI Administration Pantoprazole Sodium 40 mg 08/05/18 17:30 08/06/18 10:22 Protonix - PO 40 mg DAILY AMAURI Administration Polyethylene Glycol 17 gm 08/04/18 18:06 Miralax (For Daily Use) - PO DAILY PRN CONSTIPATION Prednisone 40 mg 08/06/18 10:00 08/06/18 10:21 Deltasone - PO 40 mg DAILY AMAURI Administration Senna 2 tab 08/04/18 18:06 08/05/18 02:19 Senna - PO 2 tab HS PRN Administration CONSTIPATION Sodium Chloride 1 gm 08/07/18 10:00 Sodium Chloride Tablet - PO DAILY AMAURI Ambulatory Orders Atenolol [Tenormin -] 25 mg PO DAILY 08/02/18 Atorvastatin Ca [Lipitor] 10 mg PO HS 08/02/18 Diltiazem Cd [Cardizem Cd -] 120 mg PO DAILY 08/02/18 Arformoterol Tartrate [Brovana] 2 ml IH BID 08/03/18 Aspirin Coated [Ecotrin -] 81 mg PO DAILY 08/03/18 Colesevelam HCl 625 mg PO BID 08/03/18 Ferrous Sulfate 325 mg PO ONCE 08/03/18 Fluticasone Propionate [Flovent Diskus] 100 mcg IH BID 08/03/18 Folic Acid 1 mg PO ONCE 08/03/18 Ipratropium 0.02% Nebulizer 2.5 ml IH QID 08/03/18 LORazepam [Ativan] 1 mg PO PRN 08/03/18 Montelukast Sodium [Singulair] 10 mg PO ONCE 08/03/18 Pantoprazole Sodium 40 mg PO BID 08/03/18 Prednisone See Taper PO ASDIR #17 tablet 08/06/18 Sodium Chloride Tablet - 1 gm PO DAILY #7 tablet 08/06/18 ASSESSMENT/PLAN: Patient is an 88 yo F with history of asthma, with numerous admissions to [facility] for asthma exacerbation, on home oxygen, no prior history of intubations, presents with complaint of shortness of breath. Acute hypoxic respiratory failure -Likely secondary to COPD exacerbation -On Prednisone 40mg PO taper. -Levalbuterol 0.63mg IH TID (albuterol allergy) -Ipratropium 1amp QID -Pulmonology consult (Dr. Guzman) appreciated. -Blood cultures negative for growth at 72 hours. -Levofloxacin 250mg IV daily received for 5days -Influenza A/B negative -Repeat chest radiograph negative for infiltrates. Leukocytosis -Likely secondary to steroid administration. -Patient has completed 5 days of Levofloxacin course - CBC trended down Urinary tract infection -Urine cultures growing ESBL E.coli, pt asymptomatic -Asymptomatic bacteriuria per ID -(Dr. Jerez) no need to treat at this time. -Contact precautions for ESBL E.coli, Hypertension -Cardizem 120mg PO daily -Atenolol 25mg PO HS Hyperlipidemia -Atorvastatin 10mg PO HS Hyponatremia -Nephrology consult (Dr. Ng) appreciated. -Likely secondary to unknown cause, Elevated urinary osmolality, did not improve much on fluid restriction -Urine sodium less than 18. FeNa 0.2% -Begin NaCl tablet decreased to 1mg daily -no fuid restriction FEN -No IV fluids -Hyponatremia. Follow CMP -Sodium controlled diet Prophylaxis Lovenox 30mg subq daily Disposition -SNF dc, transportation arranged Visit type - Emergency Visit Emergency Visit: Yes ED Registration Date: 08/01/18 Care time: The patient presented to the Emergency Department on the above date and was hospitalized for further evaluation of their emergent condition. - New Patient This patient is new to me today: No - Critical Care Critical Care patient: No - Discharge Referral Referred to [facility] Med [facility] No
[2018-08-07] MEDS ORDERED: SODIUM CHLORIDE 1 GM TABLET PO SCH (10:00)
[2018-08-07 10:04] VITALS: BP 156/76; PULSE 97; TEMP 98.4
--- NOTE | 2018-08-07 16:55 | PN ---
Teaching Attending Note Name of Resident: Kenia Hope ATTENDING PHYSICIAN STATEMENT I saw and evaluated the patient. I reviewed the resident's note and discussed the case with the resident. I agree with the resident's findings and plan as documented. SUBJECTIVE: Dyspnea and non-productive cough improving. No fever. OBJECTIVE: Afebrile, Hemodynamically Stable. AAO x 2-3. SpO2 98% on 2L via NC. Last Vital Signs Temp Pulse Resp BP Pulse Ox 98.4 F 97 H 18 156/76 98 08/07/18 10:00 08/07/18 10:00 08/07/18 10:00 08/07/18 10:00 08/07/18 09:00 Heart - S1, S2, SM Lungs - few bibasal crackles. Abdomen - Soft, non-tender. Bowel Sounds normal. Extremities - edema+. No calf tenderness. Neuro - AAO x 2. Tone/Power normal all 4 extremities. Laboratory Results - last 24 hr 08/07/18 06:30 Sodium 131 L Potassium 4.1 Chloride 91 L Carbon Dioxide 34 H Anion Gap 5 L BUN 16 Creatinine 0.5 L Creat Clearance w eGFR 116.71 Random Glucose 93 Calcium 8.2 L Discharge Medications Medication Instructions Recorded Atenolol [Tenormin -] 25 mg PO DAILY 08/02/18 Atorvastatin Ca [Lipitor] 10 mg PO HS 08/02/18 Diltiazem Cd [Cardizem Cd -] 120 mg PO DAILY 08/02/18 Arformoterol Tartrate [Brovana] 2 ml IH BID 08/03/18 Aspirin Coated [Ecotrin -] 81 mg PO DAILY 08/03/18 Colesevelam HCl 625 mg PO BID 08/03/18 Ferrous Sulfate 325 mg PO ONCE 08/03/18 Fluticasone Propionate [Flovent 100 mcg IH BID 08/03/18 Diskus] Folic Acid 1 mg PO ONCE 08/03/18 Ipratropium 0.02% Nebulizer 2.5 ml IH QID 08/03/18 LORazepam [Ativan] 1 mg PO PRN 08/03/18 Montelukast Sodium [Singulair] 10 mg PO ONCE 08/03/18 Pantoprazole Sodium 40 mg PO BID 08/03/18 Prednisone See Taper PO ASDIR #17 tablet 08/06/18 Sodium Chloride Tablet - 1 gm PO DAILY #7 tablet 08/06/18 ASSESSMENT AND PLAN: 88 year old female with history of Dementia, HTN, HLD, CRF sec to COPD/Asthma, admitted with increasing SOB and non-productive cough. 1. Acute on Chronic Hypoxic respiratory failure - secondary to Acute Exacerbation COPD/Asthma and Acute Diastolic CHF. Echo - normal EF, grade 1 diastolic dysfunction. Received IV Lasix 40mg x 2 days, no further lasix required. Continue tapering course of Prednisone. Completed 5 day course of Levofloxacin. Repeat CXR - clear Medically stable for discharge. Stable respiratory status. Continue Asmanex, Singulair, Brovana 2. Bacteriuria Urine Cx pos for ESBL Afebrile, Hemodynamically Stable. No need for treatment as per ID Afebrile, Hemodynamically Stable. 3. Hyponatremia - worsened s/p Lasix IV diuresis - no improvement after 500ml bolus. Etiology unclear, likely poor oral intake - Nephrology recommends salt tabs on discharge with nephrology follow up. Discussed with Dr. Ng. Na now up to 131. 4. HTN - Continue Cardizem, Atenolol 5. HLD - Continue Statin. 6. Possible Dementia - likely diagnosis, AAO x 2. No evidence of acute confusional state. Collateral history from son confirms slow decline in memory/ cognition. 7. Constipation - resolved. Dispo - Medically stable for transfer to SNF.
== END 2018-08-07 11:19 | DRG 189 ==
LOC: JER 15:43 → JERBED 19:13 → J8W 08-02 04:32
PROVIDERS: ADMIT Internal Medicine
DX: J96.21 Acute and chronic respiratory failure with hypoxia (principal); I50.31 Acute diastolic (congestive) heart failure; J44.1 Chronic obstructive pulmonary disease with (acute) exacerbation; E87.1 Hypo-osmolality and hyponatremia; N39.0 Urinary tract infection, site not specified; E78.5 Hyperlipidemia, unspecified; B96.20 Unspecified Escherichia coli [E. coli] as the cause of diseases classified elsewhere; E87.5 Hyperkalemia; F03.90 Unspecified dementia, unspecified severity, without behavioral disturbance, psychotic disturbance, mood disturbance, and anxiety; K59.00 Constipation, unspecified; R82.71 Bacteriuria; D72.829 Elevated white blood cell count, unspecified; I11.0 Hypertensive heart disease with heart failure
CPT/HCPCS: 36415; 71045-TC-FY; 71046-TC-FY; 80048; 80053; 81003; 82272; 82570; 82803; 83735; 83880; 83930; 83935; 84100; 84295; 84300; 84484; 85025; 85027; 85610; 85730; 87040; 87086; 87186; 87804; 93005; 93010; 93306-TC; 94010; 94640; 97116-GP; 97161-GP; 99285-25

== ENCOUNTER 2018-08-18 10:19 | Inpatient (IN) | payer OTHER, MEDICARE | END 2018-09-07 17:38 | LOC: JER 10:19 → J4S 08-19 18:57 → JERBED 13:08 → JICU 14:54 ==